=== PATIENT | female | born 1985 | race Caucasian/White ===

== ENCOUNTER 2017-05-23 21:55 | Outpatient (CLI) | payer OTHER ==
[2017-05-23] MEDS ORDERED: LACTATED RINGERS 1,000 ML IV ONE (22:55)
[2017-05-23] MEDS ORDERED: ONDANSETRON 4 MG/2 ML VIAL IVP STA (23:09)
[2017-05-23 23:31] LABS: HCT 35.7 % (34.0-46.0); HGB 12.4 gm/dL (11.4-16.0); MCH 28.1 pg (25.0-35.0); MCHC 34.6 g/dL (31.0-37.0); MCV 81.2 fL (80.0-100.0); Mean Platelet Volume 13.2; Platelet Count 196 k/uL (150-450); RDW 13.7 % (11.5-15.5); WBC 14.3 k/uL (3.8-10.6)
[2017-05-23 23:32] LABS: Appearance,Urine Cloudy (Clear); Bilirubin,Urine Negative (Negative); Blood,Urine Negative (Negative); Color,Urine Yellow; Glucose,Urine (UA) Negative (Negative); Ketones,Urine 3+ (Negative); Leukocyte Esterase,Urine Trace (Negative); Mucus,Urine Moderate /hpf; Nitrite,Urine Negative (Negative); Protein,Urine 1+ (Negative); RBC,Urine 1 /hpf (0-5); Specific Gravity,Urine 1.027 (1.001-1.035); Squamous Epithelial Cell,Urine 18 /hpf (0-4); WBC,Urine 3 /hpf (0-5)
[2017-05-23 23:34] VITALS: RESP 18
[2017-05-23] MEDS: NIFEdipine 10 MG CAP PO PRN (23:36)
[2017-05-23] MEDS: LACTATED RINGERS 1,000 ML IV SCH (23:41)
[2017-05-23 23:52] LABS: Eosinophils # (M) 0.14 k/uL (0-0.7); Lymphocytes # (M) 1.72 k/uL (1.0-4.8); Monocytes # (M) 0.29 k/uL (0-1.0); Neutrophils # (M) 12.16 k/uL (1.3-7.7); Neutrophils % (M) 85 %; Nucleated Red Blood Cells 0 /100 WBC (0-0); Total Cells Counted 100
[2017-05-23 23:53] LABS: Large Platelets Present
[2017-05-24] MEDS: NIFEdipine 10 MG CAP PO PRN ×2 (00:20)
[2017-05-24] MEDS: LACTATED RINGERS 1,000 ML IV SCH (00:41)
[2017-05-24 02:11] VITALS: BP 123/61; PULSE 96; TEMP 99.3
--- NOTE | 2017-07-01 16:38 | P.MSEPDOC ---
Presenting Problems - Arrival Data Date of Arrival on Unit: 05/23/17 Time of Arrival on Unit: 21:55 Mode of Transport: Wheelchair - Complaint OB-Reason for Admission/Chief Complaint: Acute Nausea/Vomiting Medical History - Information : 1 Para: 0 Term: 0 : 0 Abortions: Spontaneous or Elective: 0 Number of Living Children: 0 - Gestational Age Gestational Age by BIJAN (wks/days): 34 Weeks and 2 Days Review of Systems - Review of Systems Constitutional: No problems Breast: No problems ENT: No problems Cardiovascular: No problems Respiratory: No problems Gastrointestinal: Diarrhea Genitourinary: No problems Musculoskeletal: No problems Neurological: No problems Skin: No problems Vital Signs - Temperature Temperature: 99.3 F Temperature Source: Temporal Artery Scan - Pulse Right Brachial Pulse Rate: 96 Pulse Assessment Method: Automatic Cuff - Respirations Respiratory Rate: 18 Oxygen Delivery Method: Room Air - Blood Pressure Right Arm Blood Pressure: 123/61 Blood Pressure Mean: 81 Blood Pressure Source: Automatic Cuff Medical Screen Scoring (Pre) - Cervical Exam Dilation: 1-3 cm = 1 Effacement: More than 50% = 2 Membranes: Intact - Uterine Contractions Frequency: < 36 weeks = 6 Duration: > 40 seconds = 2 Intensity: N/A - Maternal Vital Signs Maternal Temperature: N/A Maternal Blood Pressure: N/A Signs of Preeclampsia: N/A Maternal Respirations: N/A - Pain Assessment Pain Location and Character: Abdomen Pain Scale Used: Numeric (1 - 10) Pain Intensity: 4 Pain Description: *Acute Pain Radiation Location: none Pain Frequency: Intermittent Pain Duration: 2 Pain Duration Units: Hours Pain Behavior: Anxious, Moving Slowly - Maternal Trauma Maternal Trauma: N/A - Assessment Baseline FHR: 150 Heart Rate - NICHD Category: Category I (Normal) = 0 NST: Reactive Position: N/A - Total Score Total Score (Pre): 11 - Level of Risk Level of Risk: High (10+) Physician Notification (Pre) - Physician Notified Physician/Practitioner Notifed:: Dr. Oliver Spoke With: Dr. Oliver - Notification Comment Comment: updated on pt condition, will recheck cervix, if no change and contractions remain to be spaced out, may discharge pt home Medical Screen Scoring (Post) - Cervical Exam Dilation: 1-3 cm = 1 Effacement: Exam Deferred Membranes: Intact - Uterine Contractions Frequency: > or = 36 weeks =2 Duration: N/A Intensity: N/A - Maternal Vital Signs Maternal Temperature: N/A Maternal Blood Pressure: N/A Signs of Preeclampsia: N/A Maternal Respirations: N/A - Pain Assessment Pain Scale Used: Numeric (1 - 10) Pain Intensity: 0 - Maternal Trauma Maternal Trauma: N/A - Assessment Heart Rate: 135 Heart Rate - NICHD Category: Category I (Normal) = 0 NST: Reactive Position: N/A Station: N/A - Total Score Total Score (Post): 3 - Post Treatment Level of Risk Post Treatment Level of Risk: Low (0-5) Physician Notification (Post) - Physician Notified Physician Notified Date: 05/24/17 Physician Notified Time: 00:10 Physician/Practitioner Notified:: Dr. Oliver Spoke With: Dr. Oliver New Order Received: No Disposition - Disposition OB Disposition: Discharge to home, Written follow up instructions reviewed Discharge Date: 05/24/17 Discharge Time: 01:25 I agree with the RN Medical Screening Exam: Yes Risk & Benefit of care provided described in d/c instruction: Yes Diagnosis: LATE VOMITING OF
== END 2017-05-24 01:25 | disposition home or self-care (01) ==
LOC: FBPOP 21:55
PROVIDERS: ATTEND Obstetrics & Gynecology
DX: O21.2 Late vomiting of pregnancy (principal); Z3A.34 34 weeks gestation of pregnancy
CPT/HCPCS: 59025; 96360; 96361; 96375; 82731; 85025; 81001; G0463; J2405; 99214

== ENCOUNTER 2017-06-17 00:50 | Inpatient (IN) | payer OTHER ==
[2017-06-17] MEDS ORDERED: OXYTOCIN 10 UNIT/ML 1 ML VIAL IM PRN (02:51)
[2017-06-17] MEDS ORDERED: AMPICILLIN 2,000 MG in SODIUM CHLORIDE 0.9% 100 ML IVPB STA (02:51)
[2017-06-17] MEDS ORDERED: TERBUTALINE 1 MG/ML VIAL SQ PRN (02:51)
[2017-06-17] MEDS ORDERED: CARBOPROST TROMETHAMINE 250 MCG/ML 1 ML AMP IM PRN (02:51)
[2017-06-17] MEDS ORDERED: METHYLERGONOVINE 0.2 MG/ML 1 ML AMP IM PRN (02:51)
[2017-06-17] MEDS ORDERED: LIDOCAINE 1% (PF) 10 MG/ML (30 ML SDV) SQ PRN (02:51)
[2017-06-17] MEDS: LACTATED RINGERS 1,000 ML IV SCH ×2 (03:06→15:08)
[2017-06-17 03:16] VITALS: BMI 30.5
[2017-06-17] MEDS ORDERED: BUTORPHANOL 1 MG/ML 1 ML VIAL IV PRN (03:19)
[2017-06-17 03:42] LABS: Basophils # (A) 0.1 k/uL (0-0.2); Basophils % (A) 0 %; Eosinophils # (A) 0.2 k/uL (0-0.7); Eosinophils % (A) 1 %; HCT 33.7 % (34.0-46.0); HGB 11.7 gm/dL (11.4-16.0); Lymphocytes # (A) 3.1 k/uL (1.0-4.8); Lymphocytes % (A) 24 %; MCH 28.3 pg (25.0-35.0); MCHC 34.9 g/dL (31.0-37.0); MCV 81.3 fL (80.0-100.0); Mean Platelet Volume 15.7; Monocytes # (A) 0.6 k/uL (0-1.0); Monocytes % (A) 4 %; Neutrophils # (A) 9.1 k/uL (1.3-7.7); Neutrophils % (A) 69 %; Platelet Count 158 k/uL (150-450); RBC 4.14 m/uL (3.80-5.40); RDW 13.6 % (11.5-15.5); WBC 13.2 k/uL (3.8-10.6)
[2017-06-17 04:38] LABS: Large Platelets Present
[2017-06-17] MEDS: AMPICILLIN 1,000 MG in SODIUM CHLORIDE 0.9% 50 ML IVPB SCH ×3 (07:07→19:29)
[2017-06-17] MEDS ORDERED: diphenhydrAMINE 50 MG CAP PO PRN (08:27)
[2017-06-17] MEDS ORDERED: diphenhydrAMINE 50 MG/ML 1 ML VIAL IVP PRN ×2 (08:27)
[2017-06-17] MEDS ORDERED: HYDROCORTISONE 2.5% RECTAL CREAM 30 GM TUBE RECTAL PRN (08:27)
[2017-06-17] MEDS ORDERED: ZOLPIDEM 5 MG TAB PO PRN (08:27)
[2017-06-17] MEDS ORDERED: SIMETHICONE 80 MG CHEWABLE PO PRN (08:27)
[2017-06-17] MEDS ORDERED: ACETAMINOPHEN TAB 325 MG TAB PO PRN (08:27)
[2017-06-17] MEDS ORDERED: LANOLIN CREAM 5 GM TUBE TOPICAL PRN (08:27)
[2017-06-17] MEDS ORDERED: WITCH HAZEL 1 EACH MED..PAD TOPICAL PRN (08:27)
[2017-06-17] MEDS ORDERED: diphenhydrAMINE 25 MG CAP PO PRN (08:27)
[2017-06-17] MEDS ORDERED: BENZOCAINE/MENTHOL SPRAY 1 GM/SPRAY AEROSOL TOPICAL PRN (08:27)
--- NOTE | 2017-06-17 08:31 | P.HPOB ---
History of Present Illness H&P Date: 06/17/17 Chief Complaint: Active labor This is a 31-year-old 4 para 03/30/2002 at 37-5/7 weeks with an estimated date of confinement of 07/03/2017. Patient presented in active labor. Was admitted to labor and delivery for expectant management. She noted good movement at this time. On blood work blood type of O+, rubella immune, hepatitis B surface antigen negative, RPR nonreactive, group beta strep positive. Review of Systems Constitutional: Reports fatigue, Denies chills, Denies fever Cardiovascular: Reports edema Respiratory: Denies cough Gastrointestinal: Denies constipation, Denies diarrhea Genitourinary: Reports Past Medical History Past Medical History: No Reported History History of Any Multi-Drug Resistant Organisms: None Reported Past Surgical History: Appendectomy Additional Past Surgical History / Comment(s): lympoma removal Past Anesthesia/Blood Transfusion Reactions: No Reported Reaction Past Psychological History: No Psychological Hx Reported Additional Psychological History / Comment(s): depression after last delivery lasting more than six weeks. not medicated Smoking Status: Never smoker Past Alcohol Use History: None Reported Past Drug Use History: None Reported - Past Family History Mother Family Medical History: Thyroid Disorder Medications and Allergies Home Medications Medication Instructions Recorded Confirmed Type No Known Home Medications [No 06/17/17 06/17/17 History Known Home Medications] Allergies Allergy/AdvReac Type Severity Reaction Status Date / Time No Known Allergies Allergy Verified 06/10/17 16:54 Exam Osteopathic Statement: *. No significant issues noted on an osteopathic structural exam other than those noted in the History and Physical/Consult. - Vital Signs Vital signs: Vital Signs Temp Pulse Resp BP Pulse Ox 06/17/17 02:51 98.2 F 94 16 139/86 99 06/17/17 01:04 98.2 F 94 16 139/86 99 Intake and Output 06/16/17 06/17/17 06/17/17 22:59 06:59 14:59 Other: # Voids 2 Weight 80.739 kg - OBG Physical Exam Abdomen: Gravid Results Result Diagrams: 06/17/17 02:55 Abnormal Lab Results - Last 24 Hours (Table) 06/17/17 Range/Units 02:55 WBC 13.2 H (3.8-10.6) k/uL Hct 33.7 L (34.0-46.0) % Neutrophils # 9.1 H (1.3-7.7) k/uL Assessment and Plan (1) Positive GBS test Current Visit: Yes Status: Acute Code(s): B95.1 - STREPTOCOCCUS, GROUP B, CAUSING DISEASES [facility] SNOMED Code(s): 5016511358411 (2) Normal labor Current Visit: No Status: Acute Code(s): O80 - ENCOUNTER FOR FULL-TERM UNCOMPLICATED DELIVERY SNOMED Code(s): 71867350 (3) Third trimester Narrative/Plan: Will admit for expectant management. Anticipate spontaneous vaginal delivery. GBS prophylaxis with ampicillin 2 g IV Current Visit: No Status: Acute Code(s): Z33.1 - STATE, INCIDENTAL SNOMED Code(s): 83006689
--- NOTE | 2017-06-17 08:33 | P.PROBDLV ---
Vaginal Delivery Note - . Vaginal Delivery Note: This is a 31-year-old 4 para [birth year]/30/2002 at 37-5/7 weeks that presented to labor and delivery in active labor. She progressed slowly through labor this morning she was 9 cm at 0 station with a bulging bag of water amniotomy was performed and clear fluid was obtained. Patient progressed to complete and had a spontaneous vaginal delivery of a viable male infant at 811, weight 6 lbs. 13 oz., Apgars 9 and 9 at one and 5 minutes respectively. Next Patient was noted to be the head was delivered without difficulty no nuchal cord was noted. The anterior shoulder was then delivered by slight downward traction followed by upward traction delivering the posterior shoulder the infant was then delivered completely and ended off to the mom. The cortex then doubly clamped and cut a three-vessel cord was noted. The placenta was then delivered spontaneously intact without difficulty. Afterwards the vaginal vault was inspected a second degree midline laceration was noted this was repaired in usual fashion with 3-0 Vicryl. Afterwards inspection revealed no further lacerations. Estimated blood loss approximate 200 mL Mother and infant tolerated delivery well and are resting comfortably
[2017-06-17] MEDS: IBUPROFEN 600 MG TAB PO PRN ×2 (09:58→16:04)
[2017-06-17] MEDS ORDERED: OXYTOCIN 20 UNITS/1000 ML NS 1,000 ML IV SCH (10:00)
[2017-06-17] MEDS: SENNOSIDES-DOCUSATE SODIUM 1 EACH TAB PO SCH (19:24)
[2017-06-18] MEDS: IBUPROFEN 600 MG TAB PO PRN (07:56)
[2017-06-18] MEDS: SENNOSIDES-DOCUSATE SODIUM 1 EACH TAB PO SCH ×2 (07:57→22:10)
--- NOTE | 2017-06-18 15:59 | P.PNOBGVD ---
Subjective - Subjective Principal diagnosis: PPD 1 Interval history: Patient is postop day 1 status post normal spontaneous vaginal delivery, she is doing well. She states her pain is well-controlled, she is tolerating a regular diet without nausea or vomiting. She is ambulating and voiding without difficulty. She denies concerns. She is pumping at this time secondary to the being in the special care nursery. Patient reports: Reports appetite normal, Reports voiding normally, Reports pain well controlled, Reports ambulating normally : doing well (He is being observed in special care nursery and requiring oxygen) Objective - Latest Vital Signs Latest vital signs: Vital Signs Temp Pulse Resp BP 06/18/17 08:00 97.5 F L 83 18 111/80 06/18/17 00:00 97.3 F L 73 16 114/64 06/17/17 19:25 98.0 F 78 16 129/85 06/17/17 16:00 98.1 F 73 16 117/73 - Exam Extremities: Present: normal Abdomen: Present: normal appearance, soft Uterus: Present: firm Assessment and Plan (1) Positive GBS test Current Visit: Yes Status: Acute Code(s): B95.1 - STREPTOCOCCUS, GROUP B, CAUSING DISEASES CL[facility]SD [facility] SNOMED Code(s): 0364502637949 (2) Normal labor Current Visit: No Status: Acute Code(s): O80 - ENCOUNTER FOR FULL-TERM UNCOMPLICATED DELIVERY SNOMED Code(s): 04851717 (3) Third trimester Current Visit: No Status: Acute Code(s): Z33.1 - STATE, INCIDENTAL SNOMED Code(s): 23219110 Plan: We'll continue routine care. Patient is without complaints today anticipate discharge home tomorrow
[2017-06-19] MEDS: SENNOSIDES-DOCUSATE SODIUM 1 EACH TAB PO SCH (08:30)
[2017-06-19] MEDS: IBUPROFEN 600 MG TAB PO PRN ×2 (08:33→16:55)
--- NOTE | 2017-06-19 11:07 | P.DS ---
Providers Date of admission: 06/17/17 02:40 Expected date of discharge: 06/19/17 Attending physician: Era Zuniga Primary care physician: Era Zuniga - Discharge Diagnosis(es) (1) Positive GBS test Current Visit: Yes Status: Acute (2) Normal labor Current Visit: No Status: Acute (3) Third trimester Current Visit: No Status: Acute (4) Status post vaginal delivery Current Visit: Yes Status: Acute Hospital Course: This is a 31-year-old 4 para [birth year]/30/2000 at 37-5/7 weeks that presented in active labor on 421. Patient progressed through labor eventually amniotomy was performed of clear fluid. She was known to be GBS positive and treated 2 times with ampicillin. She breast complete and had a normal spontaneous vaginal delivery of a viable male at 811, weight of 6 lbs. 13 oz., Apgars of 9 and 9 at one and 5 minutes respectively. Of note patient was admitted to special care nursery for respiratory distress after delivery and remained there today on day #2. Next Patient's post course has been uneventful. She states her lochia is minimal, she is pumping as the is unable to latch at this time. She is ambulating and voiding without difficulty, she is tolerating a regular diet without nausea or vomiting. She denies pain and states she is ready to go home. Plan - Discharge Summary New Discharge Prescriptions: No Action No Known Home Medications [No Known Home Medications] Discharge Medication List No Known Home Medications [No Known Home Medications] 06/17/17 [History] Follow up Appointment(s)/Referral(s): Era Zuniga DO [Primary Care Provider] - 2 Weeks Patient Instructions/Handouts: Vaginal Delivery (DC) Activity/Diet/Wound Care/Special Instructions: No intercourse or tub baths until check
[2017-06-19 12:27] VITALS: RESP 16
[2017-06-19 17:03] VITALS: BP 119/77; PULSE 88; TEMP 97.6
== END 2017-06-19 18:40 | disposition home or self-care (01) | DRG 775 ==
LOC: FBPOP 00:50 → 4FBP 02:40
PROVIDERS: ADMIT Obstetrics & Gynecology Obstetrics; ATTEND Obstetrics & Gynecology Obstetrics
PROC: 0KQM0ZZ Repair Perineum Muscle, Open Approach (ICD-10-PCS; principal; 2017-06-17)
PROC: 10E0XZZ Delivery of Products of Conception, External Approach (ICD-10-PCS; 2017-06-17)
PROC: 10907ZC Drainage of Amniotic Fluid, Therapeutic from Products of Conception, Via Natural or Artificial Opening (ICD-10-PCS; 2017-06-17)
DX: O99.824 Streptococcus B carrier state complicating childbirth (principal); Z37.0 Single live birth; O70.1 Second degree perineal laceration during delivery; Z3A.37 37 weeks gestation of pregnancy
CPT/HCPCS: 59025; 84112; 85025; 88307; 99213

== ENCOUNTER 2017-06-24 16:55 | Emergency (ER) | payer OTHER ==
[2017-06-24] MEDS ORDERED: ACETAMINOPHEN TAB 325 MG TAB PO STA (17:15)
--- NOTE | 2017-06-24 17:22 | ED ---
Fever HPI - General Chief Complaint: Fever Stated Complaint: Fever post delivery Time Seen by Provider: 06/24/17 17:05 Source: patient, RN notes reviewed Mode of arrival: ambulatory Limitations: no limitations - History of Present Illness Initial Comments: This is a 31-year-old female, currently 1 week , who presents to the emergency department with chief complaint of fever. Patient states that she had a vaginal delivery 1 week ago. She states that there were no delivery complications. She states that at 34 weeks gestation she developed influenza and went into labor. They were able to stop progression of labor and patient delivered at 37 weeks and 5 days. She states that last night she began to feel intermittent hot and cold spells. She woke up this morning with body aches and developed a fever of 101. She took ibuprofen earlier at approximately 1 PM. She also admits to lower abdominal cramping and has been continuing to have vaginal bleeding that seems heavy compared to her previous pregnancies. She states that she is changing her pad a few times per day. She denies cough, difficulty breathing, chest pain, nausea or vomiting, diarrhea or constipation, hematuria, headache or dizziness. She does state that she has some dysuria. Patient is currently breast-feeding. - Related Data Previous Rx's Medication Instructions Recorded Cephalexin [Keflex] 500 mg PO Q12HR #20 cap 06/24/17 Clindamycin [Cleocin] 450 mg PO TID #90 cap 06/24/17 Allergies Allergy/AdvReac Type Severity Reaction Status Date / Time No Known Allergies Allergy Verified 06/24/17 17:02 Review of Systems ROS Statement: Those systems with pertinent positive or pertinent negative responses have been documented in the HPI. ROS Other: All systems not noted in ROS Statement are negative. Past Medical History Past Medical History: No Reported History History of Any Multi-Drug Resistant Organisms: None Reported Past Surgical History: Appendectomy Additional Past Surgical History / Comment(s): lympoma removal Past Anesthesia/Blood Transfusion Reactions: No Reported Reaction Past Psychological History: No Psychological Hx Reported Smoking Status: Never smoker Past Alcohol Use History: None Reported Past Drug Use History: None Reported - Past Family History Mother Family Medical History: Thyroid Disorder General Exam - General Exam Comments Initial Comments: General: Awake and alert, well-developed; in no apparent distress. Sitting comfortably on ED stretcher breast-feeding. is at bedside. HEENT: Head atraumatic, normocephalic. Pupils are equal, round and reactive to light. Extraocular movements intact. Oropharynx moist without erythema or exudate. Neck: Supple. Normal ROM. Cardiovascular: Regular rate and rhythm. No murmurs, rubs or gallops. Chest symmetrical. Respiratory: Lungs clear to auscultation bilaterally. No wheezes, rales or rhonchi. Normal respiratory effort with no use of accessory muscles. Abdomen: Soft, non-distended. Mild tenderness on palpation of left lower quadrant. No rigidity, rebound or guarding. Normal bowel sounds in all 4 quadrants. Musculoskeletal: Normal ROM, no tenderness bilateral upper and lower extremities. Ambulating normally. Skin: [place], warm and dry without rashes or lesions. Neurological: Alert and oriented x3. CN II-XII grossly intact. Speech is fluent and answers are appropriate. No focal neuro deficits. Psychiatric: Normal mood and affect. No overt signs of depression or anxiety noted. Limitations: no limitations External exam: Present: normal external exam. Absent: erythema, swelling, lesions Speculum exam: Present: vaginal bleeding. Absent: erythema, vaginal discharge, cervical discharge Course Vital Signs 06/24/17 06/24/17 06/24/17 16:58 19:03 20:39 Temperature 101 F H 98.2 F 98.3 F Pulse Rate 106 H 90 85 Respiratory 18 16 16 Rate Blood Pressure 123/78 121/68 108/62 O2 Sat by Pulse 97 95 100 Oximetry Medical Decision Making - Medical Decision Making This is a 31-year-old female who presented to the emergency department for evaluation of fever. Patient is one week . Patient complained of fever, body aches and dysuria. On presentation to the emergency department she did have a fever of 101. CBC revealed a white count of 12.4 with left shift at 9.6. Lactic acid is negative. Influenza was negative. UA revealed large blood and > 102 red blood cells, however patient does continue to have vaginal bleeding. UA also revealed large leukocyte esterase and high white blood cell count. Transvaginal ultrasound was obtained and revealed thickening of the endometrium as well as hemorrhagic debris. Serum beta-hCG is at 20. Pelvic exam was performed and vaginal tissue appears normal. There does continue to be some vaginal bleeding however no signs of infection. Patient given a dose of Rocephin while in the emergency department. She will be discharged home with Keflex and clindamycin to cover both UTI and possible endometritis. Recommended following up with her [employer] on Monday morning. Patient's vital signs are stable and she is in no acute distress. She states that she is feeling well at this time. She will be discharged home. Patient is in agreement with plan and voices understanding. All questions were answered. This case was discussed with attending physician, Dr. Carrillo. - Lab Data Result diagrams: 06/24/17 17:28 06/24/17 17: Lab Results 06/24/17 06/24/17 06/24/17 Range/Units 17:18 17: 17: WBC 12.4 H (3.8-10.6) k/uL RBC 4.16 (3.80-5.40) m/uL Hgb 11.6 (11.4-16.0) gm/dL Hct 34.2 (34.0-46.0) % MCV 82.3 (80.0-100.0) fL MCH 27.9 (25.0-35.0) pg MCHC 33.9 (31.0-37.0) g/dL RDW 13.8 (11.5-15.5) % Plt Count 231 (150-450) k/uL Neutrophils % 77 % Lymphocytes % 15 % Monocytes % 4 % Eosinophils % 2 % Basophils % 0 % Neutrophils # 9.6 H (1.3-7.7) k/uL Lymphocytes # 1.9 (1.0-4.8) k/uL Monocytes # 0.5 (0-1.0) k/uL Eosinophils # 0.2 (0-0.7) k/uL Basophils # 0.0 (0-0.2) k/uL Manual Slide Review Performed Large Platelets Present Sodium 141 (137-145) mmol/L Potassium 3.9 (3.5-5.1) mmol/L Chloride 109 H (98-107) mmol/L Carbon Dioxide 19 L (22-30) mmol/L Anion Gap 13 mmol/L BUN 14 (7-17) mg/dL Creatinine 0.80 (0.52-1.04) mg/dL Est GFR (CKD-EPI)AfAm >90 (>60 ml/min/1.73 sqM) Est GFR (CKD-EPI)NonAf >90 (>60 ml/min/1.73 sqM) Glucose 99 (74-99) mg/dL Plasma Lactic Acid Jonathan (0.7-2.0) mmol/L Calcium 8.4 (8.4-10.2) mg/dL Total Bilirubin 0.4 (0.2-1.3) mg/dL AST 15 (14-36) U/L ALT 27 (9-52) U/L Alkaline Phosphatase 103 (38-126) U/L Total Protein 6.7 (6.3-8.2) g/dL Albumin 3.8 (3.5-5.0) g/dL HCG, Quant mIU/mL Urine Color Yellow Urine Appearance Cloudy H (Clear) Urine pH 6.0 (5.0-8.0) Ur Specific [place] 1.032 (1.001-1.035) Urine Protein 1+ H (Negative) Urine Glucose (UA) Negative (Negative) Urine Ketones Negative (Negative) Urine Blood Large H (Negative) Urine Nitrite Negative (Negative) Urine Bilirubin Negative (Negative) Urine Urobilinogen 2.0 (<2.0) mg/dL Ur Leukocyte Esterase Large H (Negative) Urine RBC >182 H (0-5) /hpf Urine WBC 91 H (0-5) /hpf Ur Squamous Epith Cells 1 (0-4) /hpf Urine Mucus Moderate H (None) /hpf Influenza Type A RNA (Not Detectd) Influenza Type B (PCR) (Not Detectd) 06/24/17 06/24/17 06/24/17 Range/Units 17:28 17:28 17:28 WBC (3.8-10.6) k/uL RBC (3.80-5.40) m/uL Hgb (11.4-16.0) gm/dL Hct (34.0-46.0) % MCV (80.0-100.0) fL MCH (25.0-35.0) pg MCHC (31.0-37.0) g/dL RDW (11.5-15.5) % Plt Count (150-450) k/uL Neutrophils % % Lymphocytes % % Monocytes % % Eosinophils % % Basophils % % Neutrophils # (1.3-7.7) k/uL Lymphocytes # (1.0-4.8) k/uL Monocytes # (0-1.0) k/uL Eosinophils # (0-0.7) k/uL Basophils # (0-0.2) k/uL Manual Slide Review Large Platelets Sodium (137-145) mmol/L Potassium (3.5-5.1) mmol/L Chloride (98-107) mmol/L Carbon Dioxide (22-30) mmol/L Anion Gap mmol/L BUN (7-17) mg/dL Creatinine (0.52-1.04) mg/dL Est GFR (CKD-EPI)AfAm (>60 ml/min/1.73 sqM) Est GFR (CKD-EPI)NonAf (>60 ml/min/1.73 sqM) Glucose (74-99) mg/dL Plasma Lactic Acid Jonathan <0.5 L (0.7-2.0) mmol/L Calcium (8.4-10.2) mg/dL Total Bilirubin (0.2-1.3) mg/dL AST (14-36) U/L ALT (9-52) U/L Alkaline Phosphatase (38-126) U/L Total Protein (6.3-8.2) g/dL Albumin (3.5-5.0) g/dL HCG, Quant 20.2 mIU/mL Urine Color Urine Appearance (Clear) Urine pH (5.0-8.0) Ur Specific [place] (1.001-1.035) Urine Protein (Negative) Urine Glucose (UA) (Negative) Urine Ketones (Negative) Urine Blood (Negative) Urine Nitrite (Negative) Urine Bilirubin (Negative) Urine Urobilinogen (<2.0) mg/dL Ur Leukocyte Esterase (Negative) Urine RBC (0-5) /hpf Urine WBC (0-5) /hpf Ur Squamous Epith Cells (0-4) /hpf Urine Mucus (None) /hpf Influenza Type A RNA Not Detected (Not Detectd) Influenza Type B (PCR) Not Detected (Not Detectd) - Radiology Data Radiology results: report reviewed Ultrasound pelvic complete with Doppler impression: 1. Bulky uterus. 2. Mildly thickened and heterogenous endometrium measuring 1.5 cm. No appreciable vascularity. Some residual hemorrhagic debris is suggested. Correlate with beta hCG to exclude retained products of conception though this is less likely due to the lack of vascularity. 3. Normal appearance of the ovaries without evidence for ovarian torsion. Disposition Clinical Impression: Urinary tract infection Narrative: Urinary tract infection, possible endometritis. Disposition: HOME SELF-CARE Condition: Good Instructions: Urinary Tract Infection in Women (ED), Endometritis (ED) Additional Instructions: Please follow up with your [employer] within the next 1-2 days. Please take medications as prescribed. Please follow up with primary care provider within 1- 2 days. Return to emergency department if symptoms should worsen or any concerns arise. Prescriptions: Cephalexin [Keflex] 500 mg PO Q12HR #20 cap Clindamycin [Cleocin] 450 mg PO TID #90 cap Is patient prescribed a controlled substance at d/c from ED?: No Referrals: None,Stated [Primary Care Provider] - 1-2 days Time of Disposition: 22:13
[2017-06-24 17:27] LABS: Appearance,Urine Cloudy (Clear); Bilirubin,Urine Negative (Negative); Blood,Urine Large (Negative); Color,Urine Yellow; Glucose,Urine (UA) Negative (Negative); Ketones,Urine Negative (Negative); Leukocyte Esterase,Urine Large (Negative); Mucus,Urine Moderate /hpf; Nitrite,Urine Negative (Negative); Protein,Urine 1+ (Negative); RBC,Urine >182 /hpf (0-5); Specific Gravity,Urine 1.032 (1.001-1.035); Squamous Epithelial Cell,Urine 1 /hpf (0-4); WBC,Urine 91 /hpf (0-5)
[2017-06-24 17:39] LABS: Basophils % (A) 0 %; Eosinophils # (A) 0.2 k/uL (0-0.7); Eosinophils % (A) 2 %; HCT 34.2 % (34.0-46.0); HGB 11.6 gm/dL (11.4-16.0); Lymphocytes # (A) 1.9 k/uL (1.0-4.8); Lymphocytes % (A) 15 %; MCH 27.9 pg (25.0-35.0); MCHC 33.9 g/dL (31.0-37.0); MCV 82.3 fL (80.0-100.0); Mean Platelet Volume 10.7; Monocytes # (A) 0.5 k/uL (0-1.0); Monocytes % (A) 4 %; Neutrophils # (A) 9.6 k/uL (1.3-7.7); Neutrophils % (A) 77 %; Platelet Count 231 k/uL (150-450); RBC 4.16 m/uL (3.80-5.40); RDW 13.8 % (11.5-15.5); WBC 12.4 k/uL (3.8-10.6)
[2017-06-24 17:45] LABS: ALT 27 U/L (9-52); AST 15 U/L (14-36); Albumin 3.8 g/dL (3.5-5.0); Alkaline Phosphatase 103 U/L (38-126); Anion Gap 13 mmol/L; Blood Urea Nitrogen 14 mg/dL (7-17); Calcium 8.4 mg/dL (8.4-10.2); Carbon Dioxide 19 mmol/L (22-30); Chloride 109 mmol/L (98-107); Glucose 99 mg/dL (74-99); Potassium 3.9 mmol/L (3.5-5.1); Sodium 141 mmol/L (137-145); Total Bilirubin 0.4 mg/dL (0.2-1.3); Total Protein 6.7 g/dL (6.3-8.2)
[2017-06-24 17:52] LABS: Large Platelets Present
--- NOTE | 2017-06-24 20:37 | US ---
EXAMINATION TYPE: US pelvic complete plus Dopplers DATE OF EXAM: 06/24/2017 COMPARISON: NONE CLINICAL HISTORY: 31-year-old female fever. Fever, 1 week vaginal delivery, gra mirian 4, para 4 TECHNIQUE: Transabdominal sonographic images of the pelvis were acquired. No transvaginal exam due t o patient 1 week post . Color Doppler and spectral waveform analysis of the ovarian arteries an d veins. Date of LMP: Unknown Findings: 1. Uterus: anteverted measuring 12.8 x 8.8 x 9.9 cm, bulky, enlarged 2. Endometrium: Mildly thickened at 1.5 cm and heterogeneous without hyperemia. 3. Right Ovary: 3.0 x 1.6 x 1.5 cm for a volume of 3.7 mL. 4. Left Ovary: 4.1 x 2.4 x 2.7 cm for a volume of 14.1 mL. Spectral, color and waveform doppler imaging shows good arterial and venous flow within the ovaries ; there is no evidence for ovarian torsion. 5. Bilateral Adnexa: wnl 6. Posterior cul-de-sac: wnl IMPRESSION: 1. Bulky uterus. 2. Mildly thickened and heterogeneous endometrium measuring 1.5 cm. No appreciable vascularity. Some residual hemorrhagic debris is suggested. Correlate with beta-hCG to exclude retained products of con ception though this is less likely due to the lack of vascularity 3. Normal appearance to the ovaries without evidence for ovarian torsion.
[2017-06-24] MEDS ORDERED: cefTRIAXone IN SWFI 1,000 MG/10 ML SYRINGE IVP STA (22:01)
[2017-06-24 22:38] VITALS: BP 102/67; PULSE 79; RESP 18; TEMP 98.1
== END 2017-06-24 22:37 | disposition home or self-care (01) ==
LOC: EC 16:55
DX: O86.20 Urinary tract infection following delivery, unspecified (principal); O72.1 Other immediate postpartum hemorrhage; O99.89 Other specified diseases and conditions complicating pregnancy, childbirth and the puerperium; R93.8 Abnormal findings on diagnostic imaging of other specified body structures; Z90.49 Acquired absence of other specified parts of digestive tract
CPT/HCPCS: 99284; 96374; 36415; 80053; 83605; 85025; 81001; 84702; 87040; 87502; 93975; 76856; J0696

== ENCOUNTER → 2018-12-13 | Outpatient (CLI) | payer OTHER ==
--- NOTE | 2018-12-13 11:15 | US ---
EXAMINATION TYPE: Transabdominal DATE OF EXAM: 12/13/2018 10:58 AM COMPARISON: NONE CLINICAL HISTORY: O46.91 SPOTTING, BLEEDING. Bleeding x 1 day, 6, para 4, miscarriage 1 EXAM PERFORMED: Transabdominal (TA) EXAM MEASUREMENTS: GESTATIONAL AGE / DATING Physician Established: Not established yet Dates by LMP: (6 weeks/1 days) EDC: 08/07/2019 Dates by First Scan: This is 1st scan Dates by Current Scan for: No IUP seen at this time MATERNAL ANATOMY Uterus: 8.5 x 4.9 x 6.0cm, anteverted Right Ovary: 3.4 x 2.3 x 2.1cm Left Ovary: 3.8 x 3.0 x 3.0cm Post CDS / Adnexa: wnl Presence of free fluid: no Presence of corpus luteal cyst: not seen Presence of subchorionic bleed: no GESTATION / SURVEY IUP: No IUP seen at this time Date of LMP: 10/31/2018 Beta HcG (if available): Not available at time of exam. IMPRESSION: No current sonographic evidence of intrauterine . No intrauterine fluid collecti on. Correlate with beta hCG. Current considerations are for early intrauterine , ectopic pre gnancy or spontaneous . Short-term follow-up pelvic ultrasound in 7-10 days is recommended as well as short-term serial serum beta-hCG's.
== END | disposition home or self-care (01) ==
LOC: RADUSWWP 10:43
PROVIDERS: ATTEND Obstetrics & Gynecology Obstetrics
DX: O20.0 Threatened abortion (principal); Z3A.00 Weeks of gestation of pregnancy not specified
CPT/HCPCS: 36415; 76801; 84702

== ENCOUNTER → 2018-12-15 | Outpatient (CLI) | payer OTHER | END | disposition home or self-care (01) | LOC: LABWHC1 10:30 | PROVIDERS: ATTEND Obstetrics & Gynecology Obstetrics | DX: O20.0 Threatened abortion (principal) | CPT/HCPCS: 36415; 84144; 84702 ==

== ENCOUNTER → 2019-02-05 | Outpatient (CLI) | payer OTHER ==
--- NOTE | 2019-02-05 15:09 | US ---
EXAMINATION TYPE: Transabdominal DATE OF EXAM: 02/05/2019 2:51 PM COMPARISON: NONE CLINICAL HISTORY: R68.89 ABN CLINICAL FINDINGS. hx miscarriages EXAM PERFORMED: Transabdominal (TA) EXAM MEASUREMENTS: GESTATIONAL AGE / DATING Dates by LMP: ( 7 weeks/6 days) EDC: 09/18/2019 Dates by Current Scan for: ( 6 weeks/5 days) EDC: 09/26/2019 MATERNAL ANATOMY Uterus: 10.5 x 6.8 x 5.5 cm Right Ovary: 3.3 x 1.8 x 2.1 cm Left Ovary: 3.2 x 2.3 x 2.3 cm Post CDS / Adnexa: no free fluid Presence of free fluid: no Presence of corpus luteal cyst: no Presence of subchorionic bleed: no GESTATION / SURVEY CRL: 0.7 cm (6 weeks/4 days) MSD: 2.1 cm (6 weeks/6 days) Yolk Sac (normal less than 6mm): 4.1 mm Heart Rate: 122 bpm Rhythm: Normal IUP: Viable IUP Date of LMP: 12/12/2018, Beta HcG (if available): Not available at this time Single viable IUP measuring 6 weeks 5 days IMPRESSION: Single viable IUP measuring 6 weeks 5 days with a heart rate of 122 bpm and an EDC of 09/26/2019.
== END | disposition home or self-care (01) ==
LOC: RADUSWWP 14:18
PROVIDERS: ATTEND Obstetrics & Gynecology Obstetrics
DX: O36.5910 Maternal care for other known or suspected poor fetal growth, first trimester, not applicable or unspecified (principal); R68.89 Other general symptoms and signs; Z3A.01 Less than 8 weeks gestation of pregnancy
CPT/HCPCS: 76801

== ENCOUNTER 2019-02-24 16:07 | Emergency (ER) | payer OTHER ==
[2019-02-24 16:45] VITALS: TEMP 98.7
[2019-02-24 17:30] LABS: Basophils % (A) 0 %; Eosinophils # (A) 0.4 k/uL (0-0.7); Eosinophils % (A) 4 %; HCT 36.7 % (34.0-46.0); HGB 12.8 gm/dL (11.4-16.0); Lymphocytes % (A) 26 %; MCHC 34.8 g/dL (31.0-37.0); MCV 83.2 fL (80.0-100.0); Mean Platelet Volume 11.4; Monocytes # (A) 0.4 k/uL (0-1.0); Monocytes % (A) 4 %; Neutrophils # (A) 7.5 k/uL (1.3-7.7); Neutrophils % (A) 65 %; RBC 4.41 m/uL (3.80-5.40); RDW 12.2 % (11.5-15.5); WBC 11.5 k/uL (3.8-10.6)
[2019-02-24 17:39] LABS: African American GFR (CKD) >90 (>60 ml/min/1.73 sqM); Anion Gap 12 mmol/L; Blood Urea Nitrogen 11 mg/dL (7-17); Calcium 9.6 mg/dL (8.4-10.2); Carbon Dioxide 23 mmol/L (22-30); Chloride 103 mmol/L (98-107); Glucose 94 mg/dL (74-99); Non-African American GFR(CKD) >90 (>60 ml/min/1.73 sqM); Potassium 3.8 mmol/L (3.5-5.1); Sodium 138 mmol/L (137-145)
--- NOTE | 2019-02-24 18:04 | US ---
EXAMINATION TYPE: Transabdominal DATE OF EXAM: 02/24/2019 5:51 PM COMPARISON: US 2018 CLINICAL HISTORY: pain, spotting. Spotting and cramping EXAM PERFORMED: Transabdominal (TA) EXAM MEASUREMENTS: GESTATIONAL AGE / DATING Physician Established: (9 weeks/4 days) EDC: 09/25/2019 Dates by LMP: Unknown Dates by First Scan: No IUP seen at 1st scan Dates by Current Scan for: (9 weeks/0 days) EDC: 09/29/2019 MATERNAL ANATOMY Uterus: 10.5 x 5.8 x 7.6cm Right Ovary: 4.0 x 2.8 x 3.7cm Left Ovary: 3.3 x 2.0 x 2.6cm Post CDS / Adnexa: wnl Presence of free fluid: no Presence of corpus luteal cyst: right ovary: 2.1 x 1.8 x 1.9cm hypoechoic area Presence of subchorionic bleed: no GESTATION / SURVEY CRL: 2.2cm (9 weeks/0 days) Yolk Sac (normal less than 6mm): 5.0mm Heart Rate: 168 bpm Rhythm: Normal IUP: Viable IUP Date of LMP: Unknown Beta HcG (if available): Not available at time of exam Viable single IUP measuring 9 weeks 0 days with a heart rate of 168bpm and an estimated delivery date of 09/29/2019. IMPRESSION: There is satisfactory growth compared to 02/05/2019 exam.
[2019-02-24 18:11] VITALS: RESP 20
[2019-02-24 18:29] LABS: Platelet Count 252 k/uL (150-450)
[2019-02-24 18:32] LABS: Appearance,Urine Clear (Clear); Bilirubin,Urine Negative (Negative); Blood,Urine Negative (Negative); Color,Urine Light Yellow; Glucose,Urine (UA) Negative (Negative); Ketones,Urine Negative (Negative); Leukocyte Esterase,Urine Moderate (Negative); Mucus,Urine Rare /hpf; Nitrite,Urine Negative (Negative); PH, Urine 7.5 (5.0-8.0); Protein,Urine Negative (Negative); RBC,Urine <1 /hpf (0-5); Squamous Epithelial Cell,Urine 5 /hpf (0-4); Urobilinogen,Urine <2.0 mg/dL (<2.0); WBC,Urine 1 /hpf (0-5)
--- NOTE | 2019-02-24 18:49 | ED ---
Female Urogenital HPI - General Chief complaint: Vaginal Bleeding Stated complaint: 9 1/2 wks preg/spotting & cramping Time Seen by Provider: 02/24/19 16:49 Source: patient Mode of arrival: ambulatory Limitations: no limitations - History of Present Illness Initial comments: Patient is a 33-year-old female presenting to the emergency Department with com plaints of vaginal spotting as well as abdominal cramping that started yesterday evening. Patient states she is approximately 9.5 weeks . Patient is . Patient's OB is Dr. Zuniga. Patient has had 2 recent miscarriages in the last 6 months. She is concerned that she might be having another one. Patient does admit that the spotting is minimal at this time. Patient denies recent fev er, chills, cough, shortness of breath. She has no other complaints at this time. Upon arrival to the ER, her vital signs are stable. - Related Data Previous Rx's Medication Instructions Recorded Cephalexin [Keflex] 500 mg PO Q12HR #20 cap 06/24/17 Clindamycin [Cleocin] 450 mg PO TID #90 cap 06/24/17 Allergies Allergy/AdvReac Type Severity Reaction Status Date / Time No Known Allergies Allergy Verified 02/24/19 16:45 Review of Systems ROS Statement: Those systems with pertinent positive or pertinent negative responses have been documented in the HPI. ROS Other: All systems not noted in ROS Statement are negative. Past Medical History Past Medical History: No Reported History History of Any Multi-Drug Resistant Organisms: None Reported Past Surgical History: Appendectomy Additional Past Surgical History / Comment(s): lympoma removal Past Anesthesia/Blood Transfusion Reactions: No Reported Reaction Past Psychological History: No Psychological Hx Reported Smoking Status: Never smoker Past Alcohol Use History: None Reported Past Drug Use History: None Reported - Past Family History Mother Family Medical History: Thyroid Disorder General Exam - General Exam Comments Initial Comments: GENERAL: Well-appearing, well-nourished and in no acute distress. HEAD: Atraumatic, normocephalic. EYES: Pupils equal round and reactive to light, extraocular movements intact, sclera anicteric, conjunctiva are normal. ENT: Nares patent, oropharynx clear without exudates. Moist mucous membranes. NECK: Normal range of motion, supple without lymphadenopathy or JVD. LUNGS: Breath sounds clear to auscultation bilaterally and equal. No wheezes rales or rhonchi. HEART: Regular rate and rhythm without murmurs, rubs or gallops. ABDOMEN: Soft, nontender, normoactive bowel sounds. No guarding, no rebound. No masses appreciated. : Deferred, declined EXTREMITIES: Normal range of motion, no pitting or edema. No clubbing or cyanosis. NEUROLOGICAL: Normal speech, normal gait. PSYCH: Normal mood, normal affect. SKIN: Warm, Dry, normal turgor, no rashes or lesions noted. Limitations: no limitations Course Vital Signs 02/24/19 02/24/19 02/24/19 16:42 16:44 17:44 Temperature 98.7 F Pulse Rate 84 84 83 Respiratory 16 20 20 Rate Blood Pressure 130/85 130/80 108/97 O2 Sat by Pulse 99 98 98 Oximetry 02/24/19 02/24/19 18:00 19:00 Temperature Pulse Rate 75 78 Respiratory 20 20 Rate Blood Pressure 115/85 109/85 O2 Sat by Pulse 98 98 Oximetry Medical Decision Making - Medical Decision Making Patient is a 33-year-old female presents with vaginal spotting and cramping since yesterday. Patient is currently 9.5 weeks . . History of 2 miscarriages the last 6 months. Vital signs are stable. Patient has no pain in the abdomen upon palpation.Lab work shows no acute abnormalities. HCG Quant is over 100,000. UA is normal, no signs of infection. Ultrasound today shows a viable IUP measuring 9 weeks with a heart rate of 168. No abnormalities seen today. I recommended a vaginal exam however patient declined at this time. These findings were discussed with the patient, is progressing as normal at this time. Patient is stable for discharge at this time. She'll follow up with her [employer] in 2 weeks. Return parameters were discussed with the patient she verbalized understanding. Case discussed with Dr. Ambriz. - Lab Data Result diagrams: 02/24/19 16:55 02/24/19 16:55 Lab Results 02/24/19 02/24/19 02/24/19 Range/Units 16:55 16:55 16:55 WBC 11.5 H (3.8-10.6) k/uL RBC 4.41 (3.80-5.40) m/uL Hgb 12.8 (11.4-16.0) gm/dL Hct 36.7 (34.0-46.0) % MCV 83.2 (80.0-100.0) fL MCH 29.0 (25.0-35.0) pg MCHC 34.8 (31.0-37.0) g/dL RDW 12.2 (11.5-15.5) % Plt Count 252 (150-450) k/uL Neutrophils % 65 % Lymphocytes % 26 % Monocytes % 4 % Eosinophils % 4 % Basophils % 0 % Neutrophils # 7.5 (1.3-7.7) k/uL Lymphocytes # 3.0 (1.0-4.8) k/uL Monocytes # 0.4 (0-1.0) k/uL Eosinophils # 0.4 (0-0.7) k/uL Basophils # 0.0 (0-0.2) k/uL Sodium 138 (137-145) mmol/L Potassium 3.8 (3.5-5.1) mmol/L Chloride 103 (98-107) mmol/L Carbon Dioxide 23 (22-30) mmol/L Anion Gap 12 mmol/L BUN 11 (7-17) mg/dL Creatinine 0.74 (0.52-1.04) mg/dL Est GFR (CKD-EPI)AfAm >90 (>60 ml/min/1.73 sqM) Est GFR (CKD-EPI)NonAf >90 (>60 ml/min/1.73 sqM) Glucose 94 (74-99) mg/dL Calcium 9.6 (8.4-10.2) mg/dL HCG, Quant 298310.0 mIU/mL Urine Color Urine Appearance (Clear) Urine pH (5.0-8.0) Ur Specific [place] (1.001-1.035) Urine Protein (Negative) Urine Glucose (UA) (Negative) Urine Ketones (Negative) Urine Blood (Negative) Urine Nitrite (Negative) Urine Bilirubin (Negative) Urine Urobilinogen (<2.0) mg/dL Ur Leukocyte Esterase (Negative) Urine RBC (0-5) /hpf Urine WBC (0-5) /hpf Ur Squamous Epith Cells (0-4) /hpf Urine Mucus (None) /hpf Blood Type O Positive Blood Type Recheck O Pos Bld Type Recheck Status No 02/24/19 Range/Units 18:10 WBC (3.8-10.6) k/uL RBC (3.80-5.40) m/uL Hgb (11.4-16.0) gm/dL Hct (34.0-46.0) % MCV (80.0-100.0) fL MCH (25.0-35.0) pg MCHC (31.0-37.0) g/dL RDW (11.5-15.5) % Plt Count (150-450) k/uL Neutrophils % % Lymphocytes % % Monocytes % % Eosinophils % % Basophils % % Neutrophils # (1.3-7.7) k/uL Lymphocytes # (1.0-4.8) k/uL Monocytes # (0-1.0) k/uL Eosinophils # (0-0.7) k/uL Basophils # (0-0.2) k/uL Sodium (137-145) mmol/L Potassium (3.5-5.1) mmol/L Chloride (98-107) mmol/L Carbon Dioxide (22-30) mmol/L Anion Gap mmol/L BUN (7-17) mg/dL Creatinine (0.52-1.04) mg/dL Est GFR (CKD-EPI)AfAm (>60 ml/min/1.73 sqM) Est GFR (CKD-EPI)NonAf (>60 ml/min/1.73 sqM) Glucose (74-99) mg/dL Calcium (8.4-10.2) mg/dL HCG, Quant mIU/mL Urine Color Light Yellow Urine Appearance Clear (Clear) Urine pH 7.5 (5.0-8.0) Ur Specific [place] 1.010 (1.001-1.035) Urine Protein Negative (Negative) Urine Glucose (UA) Negative (Negative) Urine Ketones Negative (Negative) Urine Blood Negative (Negative) Urine Nitrite Negative (Negative) Urine Bilirubin Negative (Negative) Urine Urobilinogen <2.0 (<2.0) mg/dL Ur Leukocyte Esterase Moderate H (Negative) Urine RBC <1 (0-5) /hpf Urine WBC 1 (0-5) /hpf Ur Squamous Epith Cells 5 H (0-4) /hpf Urine Mucus Rare H (None) /hpf Blood Type Blood Type Recheck Bld Type Recheck Status Disposition Clinical Impression: Vaginal spotting, Abdominal cramping Disposition: HOME SELF-CARE Condition: Stable Instructions (If sedation given, give patient instructions): Non-Threatening First Trimester Vaginal Bleed (ED) Additional Instructions: Please return to the Emergency Department if symptoms worsen or any other concerns. Follow-up with [employer] as discussed. Is patient prescribed a controlled substance at d/c from ED?: No Referrals: Rachel Peterson DO [Primary Care Provider] - 1-2 days
[2019-02-24 19:21] VITALS: BP 109/85; PULSE 78
== END 2019-02-24 19:25 | disposition home or self-care (01) ==
LOC: EC 16:07
DX: O26.851 Spotting complicating pregnancy, first trimester (principal); O99.89 Other specified diseases and conditions complicating pregnancy, childbirth and the puerperium; R10.9 Unspecified abdominal pain; Z87.59 Personal history of other complications of pregnancy, childbirth and the puerperium; Z90.49 Acquired absence of other specified parts of digestive tract; Z3A.09 9 weeks gestation of pregnancy
CPT/HCPCS: 36415; 76801; 80048; 81001; 84702; 85025; 86900; 86901; 99284

== ENCOUNTER 2019-03-31 12:10 | Emergency (ER) | payer OTHER ==
[2019-03-31 13:17] LABS: Appearance,Urine Cloudy (Clear); Bacteria,Urine Rare /hpf; Bilirubin,Urine Negative (Negative); Blood,Urine Negative (Negative); Color,Urine Yellow; Glucose,Urine (UA) Negative (Negative); Hyaline Casts,Urine 3 /lpf (0-2); Ketones,Urine Negative (Negative); Leukocyte Esterase,Urine Trace (Negative); Mucus,Urine Rare /hpf; Nitrite,Urine Negative (Negative); PH, Urine 7.5 (5.0-8.0); Protein,Urine Negative (Negative); RBC,Urine 1 /hpf (0-5); Squamous Epithelial Cell,Urine 10 /hpf (0-4); Urobilinogen,Urine <2.0 mg/dL (<2.0); WBC,Urine 5 /hpf (0-5)
--- NOTE | 2019-03-31 14:05 | ED ---
Anxiety HPI - General Chief Complaint: Anxiety Stated Complaint: 14 wks /SOB Time Seen by Provider: 03/31/19 12:54 Source: patient Mode of arrival: ambulatory - History of Present Illness Initial Comments: Patient is a 33-year-old female, , 14 week presenting to emergency Department with a chief complaint of anxiety. She does report a history of anxiety. States that she has been dealing with anxiety after she hadn't to recent miscarriages. Patient states she talked to her OB who informed her that she might have PTSD from the miscarriages. Patient reports she is waking up over the last 2 nights and pacing back and forth from the particular reason. Patient reports this feels like her previous panic attack even before she was . She states her nausea is at baseline during her . Denies any vomiting diarrhea constipation. Denies any vaginal bleeding or discharge. Denies any abdominal pain or cramping. Denies any shortness of breath or chest pain. States she was able to calm down after she came to the ED. - Related Data Home Medications: Previous Rx's Medication Instructions Recorded Cephalexin [Keflex] 500 mg PO Q12HR #20 cap 06/24/17 Clindamycin [Cleocin] 450 mg PO TID #90 cap 06/24/17 Allergies/Adverse Reactions: Allergies Allergy/AdvReac Type Severity Reaction Status Date / Time No Known Allergies Allergy Verified 03/31/19 12:41 Review of Systems ROS Statement: Those systems with pertinent positive or pertinent negative responses have been documented in the HPI. ROS Other: All systems not noted in ROS Statement are negative. Past Medical History Past Medical History: No Reported History History of Any Multi-Drug Resistant Organisms: None Reported Past Surgical History: Appendectomy Additional Past Surgical History / Comment(s): lympoma removal Past Anesthesia/Blood Transfusion Reactions: No Reported Reaction Past Psychological History: No Psychological Hx Reported Smoking Status: Never smoker Past Alcohol Use History: None Reported Past Drug Use History: None Reported - Past Family History Mother Family Medical History: Thyroid Disorder General Exam Limitations: no limitations General appearance: alert, in no apparent distress Head exam: Present: atraumatic, normocephalic, normal inspection Eye exam: Present: normal appearance Pupils: Present: normal accommodation ENT exam: Present: normal exam, normal oropharynx, mucous membranes moist Neck exam: Present: normal inspection, full ROM Respiratory exam: Present: normal lung sounds bilaterally Cardiovascular Exam: Present: regular rate, normal rhythm, normal heart sounds GI/Abdominal exam: Present: soft. Absent: distended, tenderness, guarding Extremities exam: Present: normal inspection, full ROM Back exam: Present: normal inspection, full ROM Neurological exam: Present: alert, oriented X3 Psychiatric exam: Present: normal affect, anxious (Slightly anxious) Skin exam: Present: warm, dry, intact, normal color Course Vital Signs 03/31/19 03/31/19 12:38 14:12 Temperature 98.8 F 98.3 F Pulse Rate 89 80 Respiratory 16 18 Rate Blood Pressure 125/74 126/74 O2 Sat by Pulse 99 99 Oximetry Medical Decision Making - Medical Decision Making Patient is a 33-year-old female, , 14 week female presenting to emergency Department with a chief complaint of anxiety. Patient has been battling with anxiety after she had 2 miscarriages. All please suspecting PTSD from the miscarriages causing her to have anxiety attacks. Patient is otherwise completely asymptomatic. No abdominal pain, cramping, vaginal bleeding or discharge. Nausea is a baseline throughout the whole . She was able to calm down in the ED. CBC CMP and UA are unremarkable. heart tones are 140. Patient states she will follow-up with her OB, . Patient has otherwise been having regular follow-ups as recommended. Strict return parameters were thoroughly discussed with patient was understanding and agreeable. Case discussed with physician. - Lab Data Lab Results 03/31/19 Range/Units 12:56 Urine Color Yellow Urine Appearance Cloudy H (Clear) Urine pH 7.5 (5.0-8.0) Ur Specific [place] 1.010 (1.001-1.035) Urine Protein Negative (Negative) Urine Glucose (UA) Negative (Negative) Urine Ketones Negative (Negative) Urine Blood Negative (Negative) Urine Nitrite Negative (Negative) Urine Bilirubin Negative (Negative) Urine Urobilinogen <2.0 (<2.0) mg/dL Ur Leukocyte Esterase Trace H (Negative) Urine RBC 1 (0-5) /hpf Urine WBC 5 (0-5) /hpf Ur Squamous Epith Cells 10 H (0-4) /hpf Urine Bacteria Rare H (None) /hpf Hyaline Casts 3 H (0-2) /lpf Urine Mucus Rare H (None) /hpf Disposition Clinical Impression: Acute anxiety Disposition: HOME SELF-CARE Condition: Stable Instructions (If sedation given, give patient instructions): Generalized Anxiety Disorder (ED) Additional Instructions: Follow-up with the OB. Return to the emergency department if symptoms worsen. Is patient prescribed a controlled substance at d/c from ED?: No Referrals: Rachel Peterson DO [Primary Care Provider] - 1-2 days Time of Disposition: 14:05
[2019-03-31 14:13] VITALS: BP 126/74; PULSE 80; RESP 18; TEMP 98.3
== END 2019-03-31 14:13 | disposition home or self-care (01) ==
LOC: EC 12:10
DX: O99.342 Other mental disorders complicating pregnancy, second trimester (principal); F41.9 Anxiety disorder, unspecified; Z3A.14 14 weeks gestation of pregnancy
CPT/HCPCS: 81001; 87086; 99283

== ENCOUNTER 2019-08-07 13:18 | Outpatient (CLI) | payer OTHER ==
[2019-08-07 16:53] VITALS: BP 116/61; PULSE 90; RESP 18; TEMP 97.9
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
== END 2019-08-07 16:10 | disposition home or self-care (01) ==
LOC: FBPOP 13:18
PROVIDERS: ATTEND Obstetrics & Gynecology Obstetrics
DX: O99.89 Other specified diseases and conditions complicating pregnancy, childbirth and the puerperium (principal); G89.11 Acute pain due to trauma; Z3A.33 33 weeks gestation of pregnancy
CPT/HCPCS: 59025; G0463; 99213

== ENCOUNTER 2019-09-19 05:58 | Inpatient (IN) | payer OTHER ==
[2019-09-19] MEDS ORDERED: METHYLERGONOVINE 0.2 MG/ML 1 ML AMP IM PRN (06:19)
[2019-09-19] MEDS ORDERED: TERBUTALINE 1 MG/ML VIAL SQ PRN (06:19)
[2019-09-19] MEDS ORDERED: CARBOPROST TROMETHAMINE 250 MCG/ML 1 ML AMP IM PRN (06:19)
[2019-09-19] MEDS ORDERED: OXYTOCIN 10 UNIT/ML 1 ML VIAL IM PRN (06:19)
[2019-09-19] MEDS ORDERED: LIDOCAINE 0.5% (PF) 5 MG/ML (50 ML SDV) SQ PRN (06:19)
[2019-09-19] MEDS: LACTATED RINGERS 1,000 ML IV SCH ×2 (06:42→09:15)
[2019-09-19] MEDS: OXYTOCIN 30 UNITS/500 ML NS 30 UNIT in SALINE 1 500ML.BAG IV SCH (06:54)
[2019-09-19 07:48] LABS: Basophils % (A) 0 %; Eosinophils # (A) 0.3 k/uL (0-0.7); Eosinophils % (A) 3 %; HCT 32.7 % (34.0-46.0); Lymphocytes # (A) 1.9 k/uL (1.0-4.8); Lymphocytes % (A) 21 %; MCH 28.5 pg (25.0-35.0); MCHC 33.7 g/dL (31.0-37.0); MCV 84.4 fL (80.0-100.0); Mean Platelet Volume 11.9; Monocytes # (A) 0.5 k/uL (0-1.0); Monocytes % (A) 5 %; Neutrophils # (A) 6.3 k/uL (1.3-7.7); Neutrophils % (A) 69 %; RBC 3.87 m/uL (3.80-5.40); RDW 14.4 % (11.5-15.5); WBC 9.1 k/uL (3.8-10.6)
[2019-09-19 08:12] LABS: Platelet Count 205 k/uL (150-450)
[2019-09-19] MEDS ORDERED: fentaNYL (PF) 50 MCG/ML 5 ML AMP ONE (08:58)
[2019-09-19] MEDS ORDERED: SODIUM CHLORIDE 0.9% 100 ML BAG ONE (08:58)
[2019-09-19] MEDS ORDERED: ROPIVACAINE 5MG/ML 20ML VIAL ONE (08:58)
[2019-09-19] MEDS ORDERED: HYDROCORTISONE 2.5% RECTAL CREAM 30 GM TUBE RECTAL PRN (15:58)
[2019-09-19] MEDS ORDERED: ZOLPIDEM 5 MG TAB PO PRN (15:58)
[2019-09-19] MEDS ORDERED: diphenhydrAMINE 50 MG/ML 1 ML VIAL IVP PRN ×2 (15:58)
[2019-09-19] MEDS ORDERED: HYDROcodone/APAP 5-325MG 1 EACH TAB PO PRN (15:58)
[2019-09-19] MEDS ORDERED: diphenhydrAMINE 25 MG CAP PO PRN (15:58)
[2019-09-19] MEDS ORDERED: diphenhydrAMINE 50 MG CAP PO PRN (15:58)
[2019-09-19] MEDS ORDERED: BENZOCAINE/MENTHOL SPRAY 1 GM/SPRAY AEROSOL TOPICAL PRN (15:58)
[2019-09-19] MEDS ORDERED: SIMETHICONE 80 MG CHEWABLE PO PRN (15:58)
[2019-09-19] MEDS ORDERED: LANOLIN CREAM 5 GM TUBE TOPICAL PRN (15:58)
[2019-09-19] MEDS ORDERED: OXYTOCIN 20 UNITS/1000 ML NS 1,000 ML IV SCH (16:00)
--- NOTE | 2019-09-19 16:00 | P.HPOB ---
History of Present Illness H&P Date: 09/19/19 Chief Complaint: IUP at 39-0/7 weeks This is a pleasant 33-year-old 7 para 4024 at 39 0/7 weeks that presents to labor and delivery for elective induction of labor. Patient has extreme anxiety about labor and delivery and wishes induction. Patient has had an essentially uncomplicated , this morning patient notes good movement denies vaginal bleeding or loss of fluid. On bloodwork patient has a blood type of O+, rubella status immune, B surface antigen negative, HIV negative, RPR nonreactive, group beta strep culture negative. Review of Systems Constitutional: Denies chills, Denies fatigue Ears, nose, mouth and throat: Denies headache Cardiovascular: Reports leg edema Respiratory: Denies dyspnea Gastrointestinal: Denies constipation, Denies diarrhea, Denies nausea, Denies vomiting Genitourinary: Reports Past Medical History Past Medical History: No Reported History History of Any Multi-Drug Resistant Organisms: None Reported Past Surgical History: Appendectomy Additional Past Surgical History / Comment(s): lympoma removal Past Anesthesia/Blood Transfusion Reactions: No Reported Reaction Past Psychological History: No Psychological Hx Reported Additional Psychological History / Comment(s): depression after last delivery lasting more than six weeks. not medicated Smoking Status: Never smoker Past Alcohol Use History: None Reported Past Drug Use History: None Reported - Past Family History Mother Family Medical History: Thyroid Disorder Medications and Allergies Home Medications Medication Instructions Recorded Confirmed Type Pnv No.95/Ferrous Fum/Folic AC 1 each PO DAILY 08/07/19 09/19/19 History [ Multivitamin Tablet] Allergies Allergy/AdvReac Type Severity Reaction Status Date / Time No Known Allergies Allergy Verified 09/19/19 06:18 Exam Osteopathic Statement: *. No significant issues noted on an osteopathic structural exam other than those noted in the History and Physical/Consult. 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 On cervical exam she is 4/50/-2 amniotomy is performed and clear fluid was obtained. Results Result Diagrams: 09/19/19 07:01 Abnormal Lab Results - Last 24 Hours (Table) 09/19/19 Range/Units 07:01 Hgb 11.0 L (11.4-16.0) gm/dL Hct 32.7 L (34.0-46.0) % Assessment and Plan (1) Term Current Visit: Yes Status: Acute Code(s): Z34.90 - ENCNTR FOR SUPRVSN OF NORMAL , UNSP, UNSP TRIMESTER SNOMED Code(s): 16436260 Plan: Patient is admitted to labor and delivery for Pitocin induction of labor. Pitocin induction is begun per hospital protocol. Options for analgesia including Stadol and epidural are discussed with patient and she elects epidural. Anticipate spontaneous vaginal delivery later today.
--- NOTE | 2019-09-19 16:02 | P.PROBDLV ---
Vaginal Delivery Note - . Vaginal Delivery Note: This is a pleasant 33-year-old 7 para 3124 at 39-0/7 weeks that presents to labor and delivery for elective induction of labor. Patient has a history of fast labors. Patient was receiving routine care with myself which had been essentially uncomplicated. Patient presented to the hospital for Pitocin induction of labor. Pitocin induction was begun per hospital protocol. Patient underwent amniotomy when regular contractions were noted. Clear amniotic fluid was noted. Patient requested epidural placement soon after amniotomy was performed. Patient progressed slowly through labor eventually becoming complete began pushing and had a normal spontaneous vaginal delivery with a compound left hand at 1542, weight of 7 lbs. 5 oz. and Apgars of 8 and 8 at one and 5 minutes respectively. Patient did sustain a second-degree midline laceration during delivery. After two-minute delay the umbilical cord was doubly clamped and cut and the infant was handed off to the maternal abdomen. The placenta was then delivered spontaneously intact with a three-vessel cord being noted. On inspection the patient's vaginal vault a secondary midline laceration was noted was likely secondary to the compound hand of the . This was injected with lidocaine and repaired in the usual fashion with 3-0 Rapide. The uterus is noted to be firm and below the lump umbilicus at this time. A rectal exam was performed at this time and found to be normal in nature. All counts were noted to be correct 2 Estimated blood loss 100 mL Patient and infant tolerated delivery well and are resting comfortably.
[2019-09-19] MEDS: IBUPROFEN 600 MG TAB PO PRN (18:31)
[2019-09-19] MEDS: SENNOSIDES-DOCUSATE SODIUM 1 EACH TAB PO SCH (19:34)
[2019-09-20] MEDS: IBUPROFEN 600 MG TAB PO PRN ×4 (03:13→22:20)
[2019-09-20] MEDS: SENNOSIDES-DOCUSATE SODIUM 1 EACH TAB PO SCH ×2 (08:07→22:19)
--- NOTE | 2019-09-20 08:20 | P.PNOBGVD ---
Subjective - Subjective Principal diagnosis: PPD 1 Interval history: Patient is doing well . She is ambulating and voiding without difficulty. She states her pain is well-controlled with oral medication. She is breast-feeding without difficulty. Her lochia is moderate. Patient reports: Reports appetite normal, Reports voiding normally, Reports pain well controlled, Reports ambulating normally [place]: doing well, nursing well Objective - Latest Vital Signs Latest vital signs: Vital Signs Temp Pulse Resp BP Pulse Ox 09/20/19 00:00 97.9 F 79 15 105/66 99 09/19/19 20:00 98.3 F 102 H 15 101/60 97 09/19/19 18:00 102 H 16 118/71 09/19/19 17:30 97 17 110/68 09/19/19 17:00 91 16 112/68 09/19/19 16:46 96 17 117/63 09/19/19 16:30 99 16 117/63 09/19/19 16:15 96 16 117/65 09/19/19 16:00 98.2 F 108 H 17 113/62 Intake and Output 09/19/19 09/20/19 09/20/19 22:59 06:59 14:59 Other: # Voids 1 2 - Exam Extremities: Present: normal Abdomen: Present: normal appearance, soft Uterus: Present: normal, firm Assessment and Plan (1) Term Current Visit: Yes Status: Acute Code(s): Z34.90 - ENCNTR FOR SUPRVSN OF NORMAL , UNSP, UNSP TRIMESTER SNOMED Code(s): 65185598 (2) Obstetric vaginal laceration with second degree perineal laceration Current Visit: Yes Status: Acute Code(s): O70.1 - SECOND DEGREE PERINEAL LACERATION DURING DELIVERY SNOMED Code(s): 704211852 (3) Status post vaginal delivery Current Visit: No Status: Acute Code(s): CXS2490 - SNOMED Code(s): 755747879 Plan: This pleasant 33-year-old 7 [id number] status post normal spontaneous vaginal delivery yesterday afternoon. Patient is doing well . We'll continue routine care and plan discharge home tomorrow morning.
[2019-09-20 08:37] VITALS: RESP 16
[2019-09-20] MEDS: PRENATAL VIT-IRON-FOLIC ACID 1 EACH CAP PO SCH (11:55)
[2019-09-20] MEDS: ACETAMINOPHEN TAB 325 MG TAB PO PRN ×2 (11:55→19:23)
[2019-09-20] MEDS: LACTATED RINGERS 1,000 ML IV SCH ×2 (12:08→12:09)
[2019-09-20] MEDS: OXYTOCIN 30 UNITS/500 ML NS 30 UNIT in SALINE 1 500ML.BAG IV SCH (12:09)
[2019-09-21] MEDS: PRENATAL VIT-IRON-FOLIC ACID 1 EACH CAP PO SCH (08:01)
[2019-09-21] MEDS: IBUPROFEN 600 MG TAB PO PRN (08:01)
[2019-09-21] MEDS: SENNOSIDES-DOCUSATE SODIUM 1 EACH TAB PO SCH (08:02)
[2019-09-21 08:05] VITALS: BP 115/78; PULSE 91; TEMP 98.2
--- NOTE | 2019-09-21 08:41 | P.DS ---
Providers Date of admission: 09/19/19 05:58 Expected date of discharge: 09/21/19 Attending physician: Era Zuniga Primary care physician: Stated None - Discharge Diagnosis(es) (1) Term Current Visit: Yes Status: Acute (2) Obstetric vaginal laceration with second degree perineal laceration Current Visit: Yes Status: Acute (3) Status post vaginal delivery Current Visit: No Status: Acute Hospital Course: This is a pleasant 33-year-old 7 now para 4125 at 39 0/7 weeks that presented to labor and delivery for elective induction of labor. Patient was admitted to labor and delivery and Pitocin induction of labor was begun per hospital protocol. Patient progressed through labor eventually becoming uncomfortable and requesting epidural placement. Patient progressed to complete began pushing and had a normal spontaneous vaginal delivery of a viable female infant at 1542, weight of 7 lbs. 5 oz. and Apgars of 8 and 8 at one and 5 minutes respectively. Patient did sustain a second-degree midline laceration during delivery which was repaired in usual fashion. Patient's course has been uneventful. On this day #2 she is ambulating and voiding without difficulty. She is tolerating a regular diet without nausea or vomiting. She is breast-feeding without difficulty. She states her pain is well-controlled. She would like discharge home today. Patient Condition at Discharge: Good Plan - Discharge Summary New Discharge Prescriptions: No Action Pnv No.95/Ferrous Fum/Folic AC [ Multivitamin Tablet] 1 each PO DAILY Discharge Medication List Pnv No.95/Ferrous Fum/Folic AC [ Multivitamin Tablet] 1 each PO DAILY 08/07/19 [History] Patient Instructions/Handouts: Vaginal Delivery (DC), Vaginal Delivery (GEN) Discharge Disposition: HOME SELF-CARE
== END 2019-09-21 11:15 | disposition home or self-care (01) | DRG 807 ==
LOC: 4FBP 05:58
PROVIDERS: ADMIT Obstetrics & Gynecology Obstetrics; ATTEND Obstetrics & Gynecology Obstetrics
PROC: 0KQM0ZZ Repair Perineum Muscle, Open Approach (ICD-10-PCS; principal; 2019-09-19)
PROC: 10E0XZZ Delivery of Products of Conception, External Approach (ICD-10-PCS; principal; 2019-09-19)
PROC: 3E0R3BZ Introduction of Anesthetic Agent into Spinal Canal, Percutaneous Approach (ICD-10-PCS; principal; 2019-09-19)
PROC: 10907ZC Drainage of Amniotic Fluid, Therapeutic from Products of Conception, Via Natural or Artificial Opening (ICD-10-PCS; principal; 2019-09-19)
PROC: 3E033VJ Introduction of Other Hormone into Peripheral Vein, Percutaneous Approach (ICD-10-PCS; principal; 2019-09-19)
PROC: 00HU33Z Insertion of Infusion Device into Spinal Canal, Percutaneous Approach (ICD-10-PCS; principal; 2019-09-19)
DX: O99.344 Other mental disorders complicating childbirth (principal); Z37.0 Single live birth; F41.9 Anxiety disorder, unspecified; O70.1 Second degree perineal laceration during delivery; Z3A.39 39 weeks gestation of pregnancy; Z79.899 Other long term (current) drug therapy
CPT/HCPCS: 85025; 86850; 86900; 86901

== ENCOUNTER 2019-12-10 14:49 | Emergency (ER) | payer OTHER ==
[2019-12-10 14:54] VITALS: BP 125/72; PULSE 73; RESP 18; TEMP 98.3
--- NOTE | 2019-12-10 15:04 | ED ---
Skin/Abscess/FB HPI - General Chief complaint: Skin/Abscess/Foreign Body Stated complaint: poss allergic reaction Time Seen by Provider: 12/10/19 14:55 Source: patient, RN notes reviewed Mode of arrival: ambulatory Limitations: no limitations - History of Present Illness Initial comments: This a 34-year-old female presents emergency from chief complaint rash. Patient states the rash and has progressively worsened today. Patient states is very itchy notes her left hand, left arm and right lower back and buttocks region. He states that she had gone to the [employer] last night to get her chicken though. Patient states that she may have brushed against something that doesn't agree with her. She has no difficulty breathing or difficulty swallowing. - Related Data Home Medications Medication Instructions Recorded Confirmed Pnv No.95/Ferrous Fum/Folic AC 1 each PO DAILY 08/07/19 09/19/19 [ Multivitamin Tablet] Previous Rx's Medication Instructions Recorded predniSONE 50 mg PO DAILY #5 tab 12/10/19 Allergies Allergy/AdvReac Type Severity Reaction Status Date / Time No Known Allergies Allergy Verified 09/19/19 06:18 Review of Systems ROS Statement: Those systems with pertinent positive or pertinent negative responses have been documented in the HPI. ROS Other: All systems not noted in ROS Statement are negative. Past Medical History Past Medical History: No Reported History History of Any Multi-Drug Resistant Organisms: None Reported Past Surgical History: Appendectomy Additional Past Surgical History / Comment(s): lympoma removal Past Anesthesia/Blood Transfusion Reactions: No Reported Reaction Past Psychological History: No Psychological Hx Reported Smoking Status: Never smoker Past Alcohol Use History: None Reported Past Drug Use History: None Reported - Past Family History Mother Family Medical History: Thyroid Disorder General Exam Limitations: no limitations General appearance: alert, in no apparent distress Head exam: Present: atraumatic, normocephalic, normal inspection Neck exam: Present: normal inspection. Absent: tenderness, meningismus, lymphadenopathy Respiratory exam: Present: normal lung sounds bilaterally. Absent: respiratory distress, wheezes, rales, rhonchi, stridor Cardiovascular Exam: Present: regular rate, normal rhythm, normal heart sounds. Absent: systolic murmur, diastolic murmur, rubs, gallop, clicks Skin exam: Present: warm, dry, intact, normal color, rash (There is a rash that is slightly erythematous, raised and slightly vesicular on her left hand left arm and right lower back buttocks region) Course Vital Signs 12/10/19 14:50 Temperature 98.3 F Pulse Rate 73 Respiratory 18 Rate Blood Pressure 125/72 O2 Sat by Pulse 98 Oximetry Medical Decision Making - Medical Decision Making 34-year-old presented for rash. Patient has contact dermatitis most likely related to poison madelaine. Patient was started on steroids. Patient will follow-up with PCP and return for any worsening symptoms. Disposition Clinical Impression: Contact dermatitis Disposition: HOME SELF-CARE Condition: Stable Instructions (If sedation given, give patient instructions): Poison Madelaine (ED) Additional Instructions: Use topical hydrocortisone or Benadryl cream take [id number] antihistamines.Please return to the Emergency Department if symptoms worsen or any other concerns. Prescriptions: predniSONE 50 mg PO DAILY #5 tab Is patient prescribed a controlled substance at d/c from ED?: No Referrals: None,Stated [Primary Care Provider] - 1-2 days Time of Disposition: 15:03
== END 2019-12-10 15:15 | disposition home or self-care (01) ==
LOC: EC 14:49
DX: L25.9 Unspecified contact dermatitis, unspecified cause (principal)
CPT/HCPCS: 99282

== ENCOUNTER 2021-01-31 10:54 | Outpatient (CLI) | payer OTHER ==
[2021-01-31 11:52] VITALS: BP 121/69; PULSE 91; RESP 18; TEMP 97.8
--- NOTE | 2021-03-06 08:57 | P.MSEPDOC ---
Presenting Problems - Arrival Data Date of Arrival on Unit: 01/31/21 Time of Arrival on Unit: 10:54 Mode of Transport: Ambulatory - Complaint OB-Reason for Admission/Chief Complaint: Vaginal Bleeding Comment: pt states had pink spotting x3 this am Medical History - Information : 6 Para: 5 Term: 4 : 1 Abortions: Spontaneous or Elective: 0 Number of Living Children: 5 - Gestational Age Gestational Age by BIJAN (wks/days): 30 Weeks and 6 Days Review of Systems - Review of Systems Constitutional: No problems Breast: No problems ENT: No problems Cardiovascular: No problems Respiratory: No problems Gastrointestinal: No problems Genitourinary: No problems Musculoskeletal: No problems Neurological: No problems Skin: No problems Vital Signs - Temperature Temperature: 97.8 F Temperature Source: Axillary - Pulse Right Brachial Pulse Rate: 91 Pulse Assessment Method: Automatic Cuff - Respirations Respiratory Rate: 18 Oxygen Delivery Method: Room Air O2 Sat by Pulse Oximetry: 99 - Blood Pressure Right Arm Blood Pressure: 121/69 Blood Pressure Mean: 86 Blood Pressure Source: Automatic Cuff Medical Screen Scoring - Cervical Exam Dilation (cm): 0.5 Effacement (%): 0 Station: -5 Membranes: Intact - Uterine Contractions Frequency From (mins): 0 - Assessment - Baby A Baseline FHR: 140 Heart Rate - NICHD Category: Category I (Normal) NST: Reactive Physician Notification - Physician Notified Physician Notified Date: 01/31/21 Physician Notified Time: 11:30 Physician: April Gillespie New Order Received: Yes - Notification Comment Comment: reactive nst, no blood with speculum exam or on glove, no contractions palpated, vs wnl, ft/thick/high, orders to discharge pt home, increase oral fluids, pelvic rest, decrease activity, has appt with Dr. Zuniga on Maternal Triage Index - Maternal Triage Index Presenting for scheduled procedure w/no complaint: No - Stat/Priority 1 Stat Priority 1: No - Urgent/Priority 2 Urgent Priority 2: Yes Provider Notified: April Gillespie Provider Notified Time: 11:30 Criteria Met for Priority 2: pt 31 weeks gestation, c/o spotting x 3 this am Disposition - Disposition OB Disposition: Physician follow up in office, Triage, Discharge to home, Written follow up instructions reviewed Discharge Date: 01/31/21 Discharge Time: 11:40 I agree with the RN Medical Screening Exam: Yes Case reviewed; plan agreed upon as documented in EMR&OBIX.: Yes Diagnosis: SPOTTING COMPLICATING , THIRD TRIMESTER
== END 2021-01-31 11:40 | disposition home or self-care (01) ==
LOC: FBPOP 10:54
PROVIDERS: ATTEND Obstetrics & Gynecology
DX: O26.853 Spotting complicating pregnancy, third trimester (principal); Z3A.30 30 weeks gestation of pregnancy
CPT/HCPCS: 59025; G0463; 99213

== ENCOUNTER 2021-03-20 10:26 | Outpatient (CLI) | payer OTHER ==
[2021-03-20] MEDS ORDERED: LACTATED RINGERS 1,000 ML IV SCH (11:00)
[2021-03-20 12:23] VITALS: BP 113/77; PULSE 86; RESP 16; TEMP 97.7
--- NOTE | 2021-06-09 21:44 | P.MSEPDOC ---
Presenting Problems - Arrival Data Date of Arrival on Unit: 03/20/21 Time of Arrival on Unit: 10:24 Mode of Transport: Ambulatory - Complaint OB-Reason for Admission/Chief Complaint: Possible Onset of Labor Comment: irregular contractions throughout the night Medical History - Information : 6 Para: 5 Term: 5 : 0 Abortions: Spontaneous or Elective: 0 Number of Living Children: 5 - Gestational Age Gestational Age by BIJAN (wks/days): 37 Weeks and 5 Days Review of Systems - Review of Systems Constitutional: No problems Breast: No problems ENT: No problems Cardiovascular: No problems Respiratory: No problems Gastrointestinal: No problems Genitourinary: No problems Musculoskeletal: No problems Neurological: No problems Skin: No problems Vital Signs - Temperature Temperature: 97.7 F Temperature Source: Oral - Pulse Pulse Oximetery Pulse Rate: 86 Pulse Assessment Method: Pulse Oximetry - Respirations Respiratory Rate: 16 Oxygen Delivery Method: Room Air - Blood Pressure Right Arm Blood Pressure: 113/77 Blood Pressure Mean: 89 Blood Pressure Source: Automatic Cuff Medical Screen Scoring - Cervical Exam Dilation (cm): 4 Effacement (%): 50 Station: -2 Membranes: Intact - Uterine Contractions Frequency From (mins): 5 Frequency To (mins): 12 Duration From (seconds): 40 Duration To (seconds): 50 Intensity: Mild Resting: Soft to palpation - Assessment - Baby A Baseline FHR: 145 Heart Rate - NICHD Category: Category I (Normal) Maternal Triage Index - Maternal Triage Index Presenting for scheduled procedure w/no complaint: No - Stat/Priority 1 Stat Priority 1: No - Urgent/Priority 2 Urgent Priority 2: No - Prompt/Priority 3 Prompt Priority 3: No - Non-Urgent/Priority 4 Non-Urgent Priority 4: Yes Criteria Met for Priority 4: irregular contractions Disposition - Disposition OB Disposition: Discharge to home Discharge Date: 03/20/21 Discharge Time: 12:14 I agree with the RN Medical Screening Exam: Yes Case reviewed; plan agreed upon as documented in EMR&OBIX.: Yes Diagnosis: FALSE LABOR AT OR AFTER 37 COMPLETED WEEKS OF GESTATION
== END 2021-03-20 12:14 | disposition home or self-care (01) ==
LOC: FBPOP 10:26
PROVIDERS: ATTEND Obstetrics & Gynecology Obstetrics
DX: O47.1 False labor at or after 37 completed weeks of gestation (principal); Z3A.37 37 weeks gestation of pregnancy
CPT/HCPCS: 59025; 96360; G0463; 96367; 99213; 99214

== ENCOUNTER 2021-03-21 02:32 | Inpatient (IN) | payer OTHER ==
[2021-03-21] MEDS: LACTATED RINGERS 1,000 ML IV SCH ×2 (04:47→07:32)
[2021-03-21 06:28] LABS: Basophils % (A) 0 %; Eosinophils # (A) 0.1 k/uL (0-0.7); Eosinophils % (A) 1 %; HCT 34.2 % (34.0-46.0); Lymphocytes # (A) 2.9 k/uL (1.0-4.8); Lymphocytes % (A) 26 %; MCH 27.3 pg (25.0-35.0); MCHC 32.1 g/dL (31.0-37.0); MCV 84.9 fL (80.0-100.0); Mean Platelet Volume 16.5; Monocytes # (A) 0.4 k/uL (0-1.0); Monocytes % (A) 4 %; Neutrophils # (A) 7.3 k/uL (1.3-7.7); Neutrophils % (A) 67 %; Platelet Count 177 k/uL (150-450); RBC 4.03 m/uL (3.80-5.40); RDW 13.9 % (11.5-15.5)
[2021-03-21] MEDS ORDERED: LIDOCAINE 1% (PF) 10 MG/ML (30 ML SDV) SQ PRN (07:35)
[2021-03-21] MEDS ORDERED: CARBOPROST TROMETHAMINE 250 MCG/ML 1 ML AMP IM PRN (07:35)
[2021-03-21] MEDS ORDERED: OXYTOCIN 10 UNIT/ML 1 ML VIAL IM PRN (07:35)
[2021-03-21] MEDS ORDERED: TERBUTALINE 1 MG/ML VIAL SQ PRN (07:35)
[2021-03-21] MEDS ORDERED: METHYLERGONOVINE 0.2 MG/ML 1 ML AMP IM PRN (07:35)
[2021-03-21] MEDS ORDERED: OXYTOCIN 30 UNITS/500 ML NS 30 UNIT in SALINE 1 500ML.BAG IV SCH ×2 (07:45→09:15)
--- NOTE | 2021-03-21 07:57 | P.HPOB ---
History of Present Illness H&P Date: 03/21/21 Chief Complaint: IUP at 37 and 4/7 weeks, labor This 35-year-old 8 para 4125 at 37-4/7 weeks, estimated due date of 04/05. Patient has been receiving routine care with myself, bilateral dilated renal pelvis was diagnosed at her 20 week ultrasound, this has been a stable finding. Patient has been followed closely with growth ultrasounds to 4 weeks, weekly NSTs. Patient notes good movement. Patient states she has been giovanni for proximally 48 hours irregularly in nature. Patient presented to triage, cervical change was appreciated along with increasing discomfort. Patient denied loss of fluid. On bloodwork this patient has a blood type of O+, rubella status immune, RPR nonreactive, hepatitis B surface antigen negative, HIV negative, group beta strep cultures were negative. Review of Systems Constitutional: Reports fatigue, Denies chills, Denies fever Ears, nose, mouth and throat: Denies headache Cardiovascular: Reports leg edema Respiratory: Denies dyspnea Gastrointestinal: Denies constipation, Denies diarrhea, Denies nausea, Denies vomiting Genitourinary: Reports Past Medical History Past Medical History: No Reported History History of Any Multi-Drug Resistant Organisms: None Reported Past Surgical History: Appendectomy Additional Past Surgical History / Comment(s): lympoma removal Past Anesthesia/Blood Transfusion Reactions: No Reported Reaction Past Psychological History: No Psychological Hx Reported Additional Psychological History / Comment(s): depression after last delivery lasting more than six weeks. not medicated Smoking Status: Never smoker Past Alcohol Use History: None Reported Past Drug Use History: None Reported - Past Family History Mother Family Medical History: Thyroid Disorder Medications and Allergies Home Medications Medication Instructions Recorded Confirmed Type Pnv No.95/Ferrous Fum/Folic AC 1 each PO DAILY 08/07/19 03/21/21 History [ Multivitamin Tablet] Allergies Allergy/AdvReac Type Severity Reaction Status Date / Time No Known Allergies Allergy Verified 03/21/21 02:36 Exam Osteopathic Statement: *. No significant issues noted on an osteopathic structural exam other than those noted in the History and Physical/Consult. Vital Signs Temp Pulse Resp BP Pulse Ox 03/21/21 04:32 97.9 F 101 H 18 131/79 97 03/21/21 04:00 97.9 F 96 18 139/83 100 Intake and Output 03/20/21 03/20/21 03/21/21 14:59 22:59 06:59 Other: # Voids 2 Weight 83.461 kg Targeted physical exam is performed on this date. In general this a well- nourished well-developed female in no acute distress, breathing is noted to nonlabored, heart has a regular rate and rhythm, abdomen is gravid and appropriate for gestational age, on cervical exam she is 9/100/-1 station, amniotomy is performed and clear fluid was obtained. heart tones are noted to be category 1 and she is giovanni every 2-5 minutes. Results Result Diagrams: 03/21/21 04:45 Abnormal Lab Results - Last 24 Hours (Table) 03/21/21 Range/Units 04:45 WBC 11.0 H (3.8-10.6) k/uL Hgb 11.0 L (11.4-16.0) gm/dL Assessment and Plan (1) Active labor Current Visit: Yes Status: Acute Code(s): QHL6160 - SNOMED Code(s): 743929833 (2) Term Current Visit: No Status: Acute Code(s): Z34.90 - ENCNTR FOR SUPRVSN OF NORMAL , UNSP, UNSP TRIMESTER SNOMED Code(s): 30031997 Plan: 35-year-old 8 para 4125 at 37-4/7 weeks that presents to labor and delivery with complaints of regular painful contractions, labor. Patient is admitted to labor and delivery, and desires epidural placement. Epidural was placed prior to my arrival on labor and delivery by the anesthesia department. Anticipate spontaneous vaginal delivery.
--- NOTE | 2021-03-21 08:00 | P.PROBDLV ---
Vaginal Delivery Note - . Vaginal Delivery Note: 35-year-old 8 para 4124 at 37 4/7 weeks presented to labor and delivery with complaints of regular painful contractions. Patient was noted to be in active labor therefore was admitted to labor and delivery. Patient requested epidural placement, anesthesia did place epidural without difficulty. Patient underwent amniotomy and clear fluid was obtained. Patient progressed to complete upon of the head patient was placed in a modified lithotomy position, with excellent maternal effort patient had delivery of the head followed by the anterior/posterior shoulder. The infant was then delivered and placed on the maternal abdomen. After two-minute delayed the umbilical cord was doubly clamped and cut. Cord blood was then taken. The placenta was delivered spontaneously intact with three-vessel cord being noted. Uterus is noted be firm and below the umbilicus. A straight blood loss 100 mL. On inspection the patient's vaginal vault a first-degree vaginal laceration was appreciated. This vaginal laceration was repaired in the usual fashion with 3-0 Rapide. Patient and tolerated delivery well and are resting comfortably. All counts are noted to be correct 2
[2021-03-21] MEDS ORDERED: HYDROCORTISONE 2.5% RECTAL CREAM 30 GM TUBE RECTAL PRN (09:08)
[2021-03-21] MEDS ORDERED: ZOLPIDEM 5 MG TAB PO PRN (09:08)
[2021-03-21] MEDS ORDERED: LANOLIN CREAM 5 GM TUBE TOPICAL PRN (09:08)
[2021-03-21] MEDS ORDERED: diphenhydrAMINE 50 MG CAP PO PRN (09:08)
[2021-03-21] MEDS ORDERED: SIMETHICONE 80 MG CHEWABLE PO PRN (09:08)
[2021-03-21] MEDS ORDERED: diphenhydrAMINE 25 MG CAP PO PRN (09:08)
[2021-03-21] MEDS ORDERED: diphenhydrAMINE 50 MG/ML 1 ML VIAL IVP PRN ×2 (09:08)
[2021-03-21] MEDS ORDERED: BENZOCAINE/MENTHOL SPRAY 1 GM/SPRAY AEROSOL TOPICAL PRN (09:08)
[2021-03-21 09:18] LABS: Large Platelets Present
[2021-03-21] MEDS: IBUPROFEN 600 MG TAB PO PRN ×3 (09:23→22:04)
[2021-03-21] MEDS ORDERED: ROPIVACAINE 100 MG, fentaNYL (PF). 200 MCG in SODIUM CHLORIDE 0.9% 76 ML EPIDURAL ONE (10:08)
[2021-03-21] MEDS: ACETAMINOPHEN TAB 325 MG TAB PO PRN ×2 (12:11→18:58)
[2021-03-21] MEDS: SENNOSIDES-DOCUSATE SODIUM 1 EACH TAB PO SCH (22:04)
[2021-03-22] MEDS: ACETAMINOPHEN TAB 325 MG TAB PO PRN ×4 (01:16→23:27)
[2021-03-22] MEDS: IBUPROFEN 600 MG TAB PO PRN ×3 (03:59→19:54)
[2021-03-22 07:52] LABS: Basophils % (A) 0 %; Eosinophils # (A) 0.5 k/uL (0-0.7); Eosinophils % (A) 6 %; HCT 30.4 % (34.0-46.0); HGB 9.9 gm/dL (11.4-16.0); Lymphocytes # (A) 2.8 k/uL (1.0-4.8); Lymphocytes % (A) 32 %; MCH 27.7 pg (25.0-35.0); MCHC 32.5 g/dL (31.0-37.0); MCV 85.5 fL (80.0-100.0); Mean Platelet Volume 14.7; Monocytes # (A) 0.3 k/uL (0-1.0); Monocytes % (A) 3 %; Neutrophils % (A) 57 %; Platelet Count 137 k/uL (150-450); RBC 3.56 m/uL (3.80-5.40); RDW 13.7 % (11.5-15.5); WBC 8.7 k/uL (3.8-10.6)
--- NOTE | 2021-03-22 08:53 | P.PNOBGVD ---
Subjective - Subjective Principal diagnosis: day one, normal spontaneous vaginal delivery Interval history: Patient is doing well. She is ambulating and voiding without difficulty. She states her pain is well-controlled with oral ibuprofen. Her lochia is minimal. She denies concerns. She is breast-feeding without difficulty. Patient reports: Reports appetite normal, Reports voiding normally, Reports pain well controlled, Reports ambulating normally Albert: doing well Objective - Latest Vital Signs Latest vital signs: Vital Signs Temp Pulse Resp BP Pulse Ox 03/22/21 00:00 97.2 F L 67 16 102/66 97 03/21/21 20:00 98.3 F 77 16 112/73 97 03/21/21 16:00 98.0 F 82 16 123/75 97 03/21/21 12:17 98.9 F 96 16 100/61 03/21/21 09:49 99.2 F 97 16 120/70 03/21/21 09:19 90 16 126/73 03/21/21 08:49 75 16 125/73 Intake and Output 03/21/21 03/22/21 03/22/21 22:59 06:59 14:59 Intake Total 500 Output Total 100 Balance 400 Intake: IV 500 Output: Estimated Blood Loss 100 Other: # Voids 2 1 - Exam Extremities: Present: normal, edema Abdomen: Present: normal appearance, soft Uterus: Present: normal, firm - Labs Labs: Abnormal Lab Results - Last 24 Hours (Table) 03/22/21 Range/Units 07:26 RBC 3.56 L (3.80-5.40) m/uL Hgb 9.9 L (11.4-16.0) gm/dL Hct 30.4 L (34.0-46.0) % Plt Count 137 L (150-450) k/uL Assessment and Plan (1) Active labor Current Visit: Yes Status: Acute Code(s): DJS2969 - SNOMED Code(s): 121445859 (2) Term Current Visit: No Status: Acute Code(s): Z34.90 - ENCNTR FOR SUPRVSN OF NORMAL , UNSP, UNSP TRIMESTER SNOMED Code(s): 61585408 (3) Laceration, obstetrical, first degree Current Visit: Yes Status: Acute Code(s): O70.0 - FIRST DEGREE PERINEAL LACERATION DURING DELIVERY SNOMED Code(s): 32259655 (4) Status post vaginal delivery Current Visit: No Status: Acute Code(s): MOK7022 - SNOMED Code(s): 511467910 Plan: Patient is doing well . Continue routine care, plan discharge home tomorrow.
[2021-03-22] MEDS: SENNOSIDES-DOCUSATE SODIUM 1 EACH TAB PO SCH ×2 (09:41→19:54)
[2021-03-22 09:55] LABS: Large Platelets Present
[2021-03-23 01:05] VITALS: RESP 16
[2021-03-23] MEDS: IBUPROFEN 600 MG TAB PO PRN (03:24)
[2021-03-23] MEDS: ACETAMINOPHEN TAB 325 MG TAB PO PRN (06:30)
[2021-03-23 09:39] VITALS: BP 123/74; PULSE 74; TEMP 98.2
[2021-03-23] MEDS: SENNOSIDES-DOCUSATE SODIUM 1 EACH TAB PO SCH (09:40)
--- NOTE | 2021-03-23 10:19 | P.DS ---
Providers Date of admission: 03/21/21 05:00 Expected date of discharge: 03/23/21 Attending physician: Era Zuniga Primary care physician: Stated None - Discharge Diagnosis(es) (1) Active labor Current Visit: Yes Status: Acute (2) Term Current Visit: No Status: Acute (3) Laceration, obstetrical, first degree Current Visit: Yes Status: Acute (4) Status post vaginal delivery Current Visit: No Status: Acute Hospital Course: 35-year-old 8 para 4124 presented to labor and delivery at 37-4/7 weeks with complaints of regular painful contractions. Patient was noted to be in early labor, was monitored for over an hour with minimal cervical change therefore was offered observation. Patient quickly progressed to active labor upon admission. Patient did request epidural placement. Anesthesia placed epidural without difficulty. Patient underwent amniotomy clear fluid was obtained. Patient progressed quickly to complete began pushing and had a normal spontaneous vaginal delivery of a viable male . Patient did sustain a first-degree vaginal laceration at delivery, this was repaired in the usual fashion with 3-0 Rapide. Patient's course has been uneventful. On this day #2 she is ambulating and voiding without difficulty. She tolerating regular diet without nausea or vomiting. She states her pain is well-controlled. She is breast-feeding without difficulty. She states she wishes discharge home. Patient Condition at Discharge: Good Plan - Discharge Summary New Discharge Prescriptions: No Action Pnv No.95/Ferrous Fum/Folic AC [ Multivitamin Tablet] 1 each PO DAILY Discharge Medication List Pnv No.95/Ferrous Fum/Folic AC [ Multivitamin Tablet] 1 each PO DAILY 08/07/19 [History] Follow up Appointment(s)/Referral(s): Era Zuniga DO [Doctor of Osteopathic Medicine] - 4 Weeks Patient Instructions/Handouts: Vaginal Delivery (GEN), Vaginal Delivery (DC) Activity/Diet/Wound Care/Special Instructions: Patient is counseled on [id number] ibuprofen 600 mg as needed for discomfort, patient is to follow-up in the office for routine check at 4 weeks. Should she have any concerns prior to this appointment she is urged to call the office. Discharge Disposition: HOME SELF-CARE
== END 2021-03-23 14:02 | disposition home or self-care (01) | DRG 807 ==
LOC: FBPOP 02:32 → 4FBP 04:10 → OBSVTOIN 05:00
PROVIDERS: ADMIT Obstetrics & Gynecology Obstetrics; ATTEND Obstetrics & Gynecology Obstetrics
PROC: 10E0XZZ Delivery of Products of Conception, External Approach (ICD-10-PCS; principal; 2021-03-21)
PROC: 0HQ9XZZ Repair Perineum Skin, External Approach (ICD-10-PCS; 2021-03-21)
DX: O70.0 First degree perineal laceration during delivery (principal); Z37.0 Single live birth; Z3A.37 37 weeks gestation of pregnancy
CPT/HCPCS: 59025; 85025; 86850; 86900; 86901; 99213

== ENCOUNTER → 2021-04-01 | Outpatient (CLI) | payer OTHER ==
--- NOTE | 2021-04-01 10:43 | US ---
EXAMINATION TYPE: US abdomen complete DATE OF EXAM: 04/01/2021 COMPARISON: None CLINICAL HISTORY: 35 year-old female R10.11 RUQ pain. TECHNIQUE: Multiple sonographic images of the abdomen are obtained. FINDINGS: EXAM MEASUREMENTS: Liver Length: 17.6 cm Gallbladder Wall: 0.2 cm CBD: 0.7 cm CHD: 1.1 cm Spleen: 12.6 cm Right Kidney: 10.3 x 4.2 x 4.2 cm Left Kidney: 10.7 x 5.2 x 4.8 cm Pancreas: wnl Liver: Borderline enlarged. Homogeneous appearance without focal lesion. Gallbladder: Two mobile stones seen= 1.4 cm and 1.3 cm. Evidence for sonographic Jaramillo's sign: neg CBD: Dilated CHD: Dilated Spleen: Upper limits of normal in size Right Kidney: No hydronephrosis or evident masses seen Left Kidney: No hydronephrosis or evident masses seen Upper IVC: wnl Abd Aorta: No AAA visualized IMPRESSION: 1. Two gallstones measuring up to 1.4 cm. No ancillary findings of acute cholecystitis. 2. There is dilatation of the bile duct up to 1.1 cm. Correlate with alkaline phosphatase and bilirub in levels to exclude choledocholithiasis or other biliary obstruction.
== END | disposition home or self-care (01) ==
LOC: RADUSWWP 09:55
PROVIDERS: ATTEND Family Medicine
DX: K80.20 Calculus of gallbladder without cholecystitis without obstruction (principal); K83.8 Other specified diseases of biliary tract
CPT/HCPCS: 76700

== ENCOUNTER → 2021-05-10 | Outpatient (CLI) | payer OTHER ==
--- NOTE | 2021-05-10 07:58 | MR ---
EXAMINATION TYPE: MR MRCP DATE OF EXAM: 05/10/2021 COMPARISON: Ultrasound abdomen April 01, 2021 HISTORY: K81.1 chronic cholecystitis, Abd pain Standard multiplanar, multisequence MRI departmental protocol Multiplanar, multisequence images of the abdomen were acquired without contrast. Thin and thick slice MRCP imaging performed without contrast. FINDINGS: Liver/gallbladder/pancreas/biliary system: Liver is normal in size. No significant signal dropout. No concerning solid or cystic masses. Pancreas appears slightly bulky particularly in the tail. No conc erning solid or cystic mass in the body or tail.. Gallbladder shows intraluminal 1.5 cm gallstone. Th ere is a smaller 7 mm stone near the gallbladder neck and larger 14 mm stone in the gallbladder neck coronal image 17. No surrounding fluid or abnormal gallbladder wall thickening. There is no significa nt intrahepatic or extrahepatic biliary dilatation currently on MRCP imaging. Tortuous but nondilated cystic duct is identified. No intraluminal gallstone is seen. Pancreas shows poorly visualized duct. Visualized portion shows normal insertion at the ampulla. There is a 7 x 3 mm eccentric prominent po rtion in the head MRCP image 85 series 1001 of uncertain etiology appears contiguous with the duct. Other: Visualized lung bases are clear. Spleen remains upper limits of normal in size. No adrenal mas ses. No suspicious renal masses or hydronephrosis. No bowel dilatation. Visualized osseous structures are intact. No intra-abdominal ascites. Visualized osseous structures are intact. IMPRESSION: 1. Intraluminal gallstones redemonstrated. Interval resolution of mild to moderate extrahepatic bilia ry dilatation. 2. There is 7 x 3 mm eccentric cystic prominence pancreatic head, is felt contiguous with the main pa ncreatic duct without associated pancreatic ductal dilatation, suspicious for main duct IPMN versus o ther cystic lesion. Advise GI referral. Advise at minimum repeat MRI/MRCP with and without contrast i n one year time to reassess.
== END | disposition home or self-care (01) ==
LOC: RADMRIMAIN 06:29
PROVIDERS: ATTEND Surgery
DX: K80.20 Calculus of gallbladder without cholecystitis without obstruction (principal); K86.2 Cyst of pancreas
CPT/HCPCS: 74181

== ENCOUNTER 2021-06-07 10:19 | Day surgery (SDC) | payer OTHER ==
[2021-06-03 13:21] VITALS: BMI 28.7
--- NOTE | 2021-06-07 09:33 | P.GSHP ---
History of Present Illness H&P Date: 06/07/21 Chief Complaint: Chronic cholecystitis 35-year-old female here today for elective cholecystectomy. Patient has had intermittent complaints of right upper quadrant pain during recent pregnancies. She had an episode in the last few months where the pain was associated with d ark colored urine. Labs were checked and the patient was noted to have elevated alkaline phosphatase. We did order a MRCP which showed multiple gallstones without evidence for choledocholithiasis. A 7 mm cystic lesion at the head of the pancreas was seen and additional follow-up by GI was advised. Recent repeat liver enzymes show improvement in her alkaline phosphatase and transaminases. Past Medical History Past Medical History: No Reported History History of Any Multi-Drug Resistant Organisms: None Reported Past Surgical History: Appendectomy Additional Past Surgical History / Comment(s): Lympoma removal. Past Anesthesia/Blood Transfusion Reactions: No Reported Reaction Past Psychological History: Depression Additional Psychological History / Comment(s): Hx Depression, resolved now. Smoking Status: Never smoker Past Alcohol Use History: None Reported Past Drug Use History: None Reported - Past Family History Mother Family Medical History: Cancer, Thyroid Disorder Additional Family Medical History / Comment(s): Breast cancer. Medications and Allergies Home Medications Medication Instructions Recorded Confirmed Type No Known Home Medications 06/03/21 06/03/21 History Allergies Allergy/AdvReac Type Severity Reaction Status Date / Time No Known Allergies Allergy Verified 06/03/21 13:12 Surgical - Exam Physical exam: General: Well-developed, well-nourished HEENT: Normocephalic, sclerae nonicteric Abdomen: Nontender, nondistended Extremities: No edema Neuro: Alert and oriented Assessment and Plan (1) Chronic cholecystitis Narrative/Plan: 35-year-old female with chronic cholecystitis. We'll proceed with laparoscopic, possible open cholecystectomy at this time. Risks of bleeding, infection, bile leak, bile duct injury, retained common bile duct stone, trocar injury, conversion to an open procedure, hernia, anesthesia related complications were reviewed. The patient understands and wishes to proceed. Plan tertiary care referral to GI for possible endoscopic ultrasound to evaluate pancreatic cystic lesion after the patient recovers from this surgery. Status: Acute Code(s): K81.1 - CHRONIC CHOLECYSTITIS SNOMED Code(s): 06905830
[~2021-06-07 10:19] MED LIST: ACETAMINOPHEN TAB 500 MG TAB PO PRN; DEXAMETHASONE SOD PHOSPHATE 4 MG/ML 1 ML VIAL IV ONE; HEPARIN SODIUM,PORCINE/PF 5,000 UNIT/0.5 ML SYRINGE SQ PRN; MIDAZOLAM 2 MG/2 ML VIAL IV PRN; SCOPOLAMINE 1 MG/72 HR PATCH TRANSDERM ONE
[2021-06-07] MEDS ORDERED: LIDOCAINE 1% (10MG/ML) FOR IV START INTRADERMA ONE (10:48)
[2021-06-07] MEDS: LACTATED RINGERS 1,000 ML IV SCH ×2 (10:49→14:55)
[2021-06-07] MEDS: ONDANSETRON 4 MG/2 ML VIAL IVP ONE ×2 (10:54→15:06)
[2021-06-07] MEDS ORDERED: KETOROLAC 15 MG/ML 1 ML VIAL ONE (11:55)
[2021-06-07] MEDS ORDERED: MIDAZOLAM 2 MG/2 ML VIAL ONE (11:55)
[2021-06-07] MEDS ORDERED: NEOSTIGMINE 1 MG/ML 10 ML VIAL ONE (11:55)
[2021-06-07] MEDS ORDERED: fentaNYL (PF) 50 MCG/ML 2 ML AMP ONE (11:55)
[2021-06-07] MEDS ORDERED: ROCURONIUM 10 MG/ML (5 ML VIAL) IV ONE (11:55)
[2021-06-07] MEDS ORDERED: LIDOCAINE 1% INJ 10MG/ML (20 ML MDV) ONE (11:55)
[2021-06-07] MEDS ORDERED: PROPOFOL 10 MG/ML 20 ML VIAL IV ONE (11:55)
[2021-06-07] MEDS ORDERED: SUCCINYLCHOLINE CHLORIDE 100 MG/5 ML SYR IV ONE (11:55)
[2021-06-07] MEDS ORDERED: SUGAMMADEX SODIUM 200 MG/2 ML SDV IV ONE (11:55)
[2021-06-07] MEDS ORDERED: GLYCOPYRROLATE 0.2 MG/ML 2 ML VIAL ONE (11:55)
[2021-06-07] MEDS ORDERED: BUPIVACAIN-EPI 0.25%-1:200,000 30 ML VIAL SQ ONE (11:56)
[2021-06-07] MEDS ORDERED: LACTATED RINGERS 1,000 ML IV ONE (12:48)
[2021-06-07] MEDS ORDERED: ACETAMINOPHEN TAB 325 MG TAB PO SCH (13:30)
--- NOTE | 2021-06-07 13:30 | P.OP ---
Date of Procedure: 06/07/21 Procedure(s) Performed: PREOPERATIVE DIAGNOSIS: Chronic cholecystitis POSTOPERATIVE DIAGNOSIS: Same PROCEDURE: Laparoscopic cholecystectomy SURGEON: Bailey EBL: 20 mL ANESTHESIA: Gen. COMPLICATIONS: None OPERATIVE PROCEDURE: The patient was brought and placed on the operating room table in the supine position. The patient was placed under general anesthesia at that time. The abdomen was prepped and draped in the usual sterile fashion. A small vertical infraumbilical incision was made. The fascia was grasped with the Meghana forceps. The fascia was retracted anteriorly. The Veress needle was advanced into the peritoneal cavity. The saline drop test was normal. Insufflation took place up to 15 mmHg. A 5 mm optical trocar was advanced and the peritoneal cavity. 2 additional 5 mm trochars were placed in the right upper quadrant under direct visualization. A 12 mm trocar was advanced into the epigastric incision site. The gallbladder was retracted superiorly and laterally. The gallbladder was significantly distended with chronic inflammatory changes. The peritoneum overlying the infundibulum was bluntly dissected. The patient's cystic duct was visualized. The junction between the cystic duct common and hepatic duct was identified. The critical view of safety was achieved after blunt dissection. The cystic duct was then divided after placement of 3 12 mm clips on the patient's side and one on the specimen side. The cystic artery was identified and clipped as well. The clip on the specimen side of the cystic duct was loose and clear fluid came out of the gallbladder consistent with hydrops. The larger of the 2 stones was lodged in the neck of the gallbladder. A small vessel was seen along the gallbladder fossa and clipped as well. The gallbladder was then removed from the liver bed using electrocautery. The gallbladder was then removed from the epigastric trocar site with an Endo Catch bag. The gallbladder fossa was irrigated with saline. There was no evidence of any bleeding or biliary drainage seen. The fascia at the 12 millimeter site was closed using a Ilya-Priyanka 0 Vicryl stitch. The trochars were then removed. The skin at all 4 sites was closed using a 4-0 Monocryl stitch. Skin glue was utilized on the incision sites. At the end of this procedure the sponge and needle counts were correct. DISPOSITION: Stable to the recovery room
[2021-06-07 13:33] VITALS: TEMP 98
[2021-06-07] MEDS: HYDROmorphone 0.5 MG/0.5 ML SYRINGE IVP PRN ×3 (13:42→14:03)
[2021-06-07] MEDS ORDERED: IBUPROFEN 600 MG TAB PO SCH (16:30)
[2021-06-07 16:49] VITALS: RESP 16
[2021-06-07 17:33] VITALS: BP 111/66; PULSE 78
== END 2021-06-07 18:28 | disposition home or self-care (01) ==
LOC: OR 10:19
PROVIDERS: ATTEND Surgery
DX: K81.1 Chronic cholecystitis (principal); F32.A Depression, unspecified; Z80.9 Family history of malignant neoplasm, unspecified
CPT/HCPCS: 47562; 81025; 88304; J2250; J1100; J2710; J0690; J2405; J2001; J3010; J1885; J0330; J2704; J1170; J1790; J1644

== ENCOUNTER 2022-10-25 11:49 | Outpatient (CLI) | payer OTHER ==
[2022-10-25 13:33] VITALS: BP 123/72; PULSE 90; RESP 16
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
== END 2022-10-25 13:25 | disposition home or self-care (01) ==
LOC: FBPOP 11:49
PROVIDERS: ATTEND Obstetrics & Gynecology Obstetrics
DX: O26.893 Other specified pregnancy related conditions, third trimester (principal); O9A.213 Injury, poisoning and certain other consequences of external causes complicating pregnancy, third trimester; Z3A.31 31 weeks gestation of pregnancy; V89.2XXA Person injured in unspecified motor-vehicle accident, traffic, initial encounter; Y92.89 Other specified places as the place of occurrence of the external cause
CPT/HCPCS: 59025; G0463; 99213

== ENCOUNTER → 2023-05-18 | Outpatient (CLI) | payer OTHER ==
--- NOTE | 2023-05-18 18:01 | US ---
EXAMINATION TYPE: US transvaginal DATE OF EXAM: 05/18/2023 COMPARISON: US CLINICAL INDICATION: Female, 37 years old with history of R10.11 RUQ PAIN; Pt states generalized pelv ic pain TECHNIQUE: Transvaginal (TV). Transvaginal sonographic images of the pelvis were acquired. Date of LMP: 1 week ago EXAM MEASUREMENTS: Uterus: 7.6 x 3.6 x 5.2 cm Endometrial Stripe: 0.5 cm Right Ovary: 3.6 x 2.7 x 2.9 cm Left Ovary: 3.7 x 2.6 x 3.1 cm 1. Uterus: Anteverted wnl 2. Endometrium: wnl 3. Right Ovary: wnl, multiple peripheral follicles. 4. Left Ovary: wnl, multiple peripheral follicles. 5. Bilateral Adnexa: wnl 6. Posterior cul-de-sac: wnl IMPRESSION: 1. No evidence for acute process. 2. Endometrium within normal limits. 3. Multiple peripheral follicles compatible with polycystic ovarian morphology.
== END | disposition home or self-care (01) ==
LOC: RADMAMWWP 13:45
PROVIDERS: ATTEND Family Medicine
DX: R10.11 Right upper quadrant pain (principal); R10.2 Pelvic and perineal pain
CPT/HCPCS: 76830

== ENCOUNTER 2024-01-04 17:33 | Emergency (ER) | payer OTHER ==
[2024-01-04 18:05] VITALS: TEMP 98.1
--- NOTE | 2024-01-04 18:33 | ED ---
Skin/Abscess/FB HPI - General Chief complaint: Skin/Abscess/Foreign Body Stated complaint: topical allergic reaction/22wks preg Time Seen by Provider: 01/04/24 18:08 Source: patient, RN notes reviewed Mode of arrival: ambulatory Limitations: no limitations - History of Present Illness Initial comments: This is a 38-year-old female who presents to the emergency department for a rash. Patient is approximately 22 weeks . States that she first noticed a rash on the palms of her hands that started to track up the forearms. She noticed this after waking up from a nap with her daughter. Unsure if she may have come into close contact with her mattress, which she has an allergy to. She called her OB and took Benadryl. She took Benadryl a couple of times but noticed that the rash then spread to her right knee. Because the rash started to spread, she came to the emergency department for evaluation. Aside from the mattress she cannot think of anything she may have come into contact with. Denies any chest pain or shortness of breath associated with this. Denies any vaginal bleeding. MD complaint: rash - Related Data Home Medications Medication Instructions Recorded Confirmed No Known Home Medications 12/08/22 12/08/22 Allergies Allergy/AdvReac Type Severity Reaction Status Date / Time memory foam Allergy Rash/Hives Uncoded 01/04/24 18:06 Review of Systems ROS Statement: Those systems with pertinent positive or pertinent negative responses have been documented in the HPI. ROS Other: All systems not noted in ROS Statement are negative. Past Medical History Past Medical History: No Reported History History of Any Multi-Drug Resistant Organisms: None Reported Past Surgical History: Appendectomy Additional Past Surgical History / Comment(s): Lympoma removal. Past Anesthesia/Blood Transfusion Reactions: No Reported Reaction Past Psychological History: Depression Smoking Status: Never smoker Past Alcohol Use History: None Reported Past Drug Use History: None Reported - Past Family History Mother Family Medical History: Cancer, Thyroid Disorder Additional Family Medical History / Comment(s): Breast cancer. General Exam Limitations: no limitations General appearance: alert, in no apparent distress Head exam: Present: atraumatic, normocephalic, normal inspection Respiratory exam: Present: normal lung sounds bilaterally. Absent: respiratory distress, wheezes, rales, rhonchi, stridor Cardiovascular Exam: Present: regular rate, normal rhythm, normal heart sounds. Absent: systolic murmur, diastolic murmur, rubs, gallop, clicks Neurological exam: Present: alert, oriented X3, CN II-XII intact Psychiatric exam: Present: normal affect Skin exam: Present: other (Urticaria to the bilateral palms, forearms, and right knee) Course Vital Signs 01/04/24 01/04/24 18:01 19:41 Temperature 98.1 F 98.1 F Pulse Rate 118 H 91 Respiratory 20 18 Rate Blood Pressure 118/73 117/78 O2 Sat by Pulse 99 100 Oximetry Medical Decision Making - Medical Decision Making This is a 38-year-old female who presents to the emergency department for a rash. Was pt. sent in by a medical professional or institution? @ -No Did you speak to anyone other than the patient for history? @ -No Did you review nursing and triage notes? @ -Yes, and I agree, it is accurate with regards to the patient's symptoms. Were old charts reviewed? @ -No Differential Diagnosis? @ -Roseola, measles, Lyme disease, erythema multiforme, cellulitis, toxic shock syndrome, Darrian Crow syndrome, Kawasaki disease, geovani mountain spotted fever, contact dermatitis, allergic dermatitis, measles, mumps, rubella, varicella, meningococcal disease, drug reaction, coxsackievirus, This is not meant to be an all-inclusive list. EKG interpreted by me (3pts min.)? @ -Not obtained X-rays interpreted by me (1pt min.)? @ -Not obtained CT interpreted by me (1pt min.)? @ -Not obtained U/S interpreted by me (1pt. min.)? @ -Not obtained What testing was considered but not performed? (CT, X-rays, U/S, labs)? Why? @ -CBC and CMP given the possibility of other pathologies such as ICP, however patient declined. What meds were considered but not given? Why? @ -Famotidine, however patient declined. Did you discuss the management of the patient with other professionals? @ -No Did you reconcile home meds? @ -No Was smoking cessation discussed for >3mins.? @ -No Was critical care preformed (if so, how long)? @ -No Were there social determinants of health that impacted care today? How? (Homelessness, low income, unemployed, alcoholism, drug addiction, transportation, low edu. Level, literacy, decrease access to med. care, detention, rehab)? @ -No Was there de-escalation of care discussed even if they declined? (Discuss DNR or withdrawal of care, Hospice)? @ -No What co-morbidities impacted this encounter? (DM, HTN, Smoking, COPD, CAD, Cancer, CVA, Hep., AIDS, mental health diagnosis, sleep apnea, morbid obesity)? @ - Was patient admitted / discharged? @ -Discharged. She appeared to have urticaria on the bilateral hands, forearms, and a few patches on the right knee. I did offer to obtain lab work including a CBC and CMP to evaluate for other pathologies such as idiopathic cholestasis of , however patient declined as she was fairly certain this was a reaction. She had taken Benadryl before arrival. We discussed famotidine, however she declined. Triamcinolone cream was provided and applied to the affected areas. She did have improvement in her symptoms with the use of triamcinolone cream. Patient was able to be discharged home at that point. Advised she continue with the Benadryl and add [id number] famotidine 1-2 times daily. She was sent home with the triamcinolone cream to continue using 3-4 times a day as well. Patient discharged home in stable condition. Case discussed with ED attending Dr. Ambriz. Return precautions reviewed in depth, the patient is instructed to return to the emergency department with any new, worsening, or concerning symptoms. Patient verbalized understanding. Undiagnosed new problem with uncertain prognosis? @ -None Drug Therapy requiring intensive monitoring for toxicity (Heparin, Nitro, Insulin, Cardizem)? @ -None Were any procedures done? @ -None Diagnosis/symptom? @ -Contact dermatitis Acute, or Chronic, or Acute on Chronic? @ -Acute Uncomplicated (without systemic symptoms) or Complicated (systemic symptoms)? @ -Uncomplicated Side effects of treatment? @ -None Exacerbation, Progression, or Severe Exacerbation] @ -Not applicable Poses a threat to life or bodily function? @ -No Disposition Clinical Impression: Contact dermatitis Disposition: HOME SELF-CARE Instructions (If sedation given, give patient instructions): Urticaria (ED) Additional Instructions: Return to the emergency department with any new, worsening, or concerning symptoms. Continue to take Benadryl for the rash. You can apply the triamcinolone cream provided every 6 hours. You can also take [id number] famotidine 1-2 times daily. Follow up with your primary care provider in 1-2 days. Is patient prescribed a controlled substance at d/c from ED?: No Referrals: Est[facility] Esp[facility] [REFERRING] - 1-2 days Time of Disposition: 19:32
[2024-01-04] MEDS: TRIAMCINOLONE 0.1% CREAM 80 GM TUBE TOPICAL STA (18:44)
[2024-01-04 19:42] VITALS: BP 117/78; PULSE 91; RESP 18
== END 2024-01-04 19:42 | disposition home or self-care (01) ==
LOC: EC 17:33
DX: O99.712 Diseases of the skin and subcutaneous tissue complicating pregnancy, second trimester (principal); L25.9 Unspecified contact dermatitis, unspecified cause; Z88.8 Allergy status to other drugs, medicaments and biological substances; Z3A.22 22 weeks gestation of pregnancy
CPT/HCPCS: 99282

== ENCOUNTER 2024-04-12 13:58 | Outpatient (CLI) | payer OTHER ==
[2024-04-12 15:04] VITALS: BP 123/77; PULSE 103; RESP 16; TEMP 98
== END 2024-04-12 14:55 | disposition home or self-care (01) ==
LOC: FBPOP 13:58
PROVIDERS: ATTEND Obstetrics & Gynecology
DX: Z53.9 Procedure and treatment not carried out, unspecified reason (principal)
CPT/HCPCS: 59025; G0463; 99213

== ENCOUNTER 2024-04-30 01:04 | Inpatient (IN) | payer OTHER ==
[2024-04-30] MEDS ORDERED: CARBOPROST TROMETHAMINE 250 MCG/ML 1 ML AMP IM PRN (01:39)
[2024-04-30] MEDS ORDERED: miSOPROStoL 200 MCG TAB PO PRN (01:39)
[2024-04-30] MEDS ORDERED: TRANEXAMIC 1,000 MG/100ML-NACL 1,000 MG in EMPTY BAG 1 BAG IV PRN (01:39)
[2024-04-30] MEDS ORDERED: OXYTOCIN 10 UNIT/ML 1 ML VIAL IM PRN (01:39)
[2024-04-30] MEDS ORDERED: TERBUTALINE 1 MG/ML VIAL SQ PRN (01:39)
[2024-04-30] MEDS ORDERED: METHYLERGONOVINE 0.2 MG/ML 1 ML AMP IM PRN (01:39)
[2024-04-30] MEDS ORDERED: miSOPROStoL 200 MCG TAB RECTAL PRN (01:39)
[2024-04-30] MEDS: LACTATED RINGERS 1,000 ML IV SCH (02:00)
[2024-04-30 03:03] LABS: Basophils # (A) 0.1 k/uL (0-0.2); Basophils % (A) 1 %; Eosinophils # (A) 0.3 k/uL (0-0.7); Eosinophils % (A) 2 %; HCT 36.8 % (34.0-46.0); HGB 11.9 gm/dL (11.4-16.0); Lymphocytes # (A) 2.6 k/uL (1.0-4.8); Lymphocytes % (A) 24 %; MCH 27.8 pg (25.0-35.0); MCHC 32.4 g/dL (31.0-37.0); MCV 85.9 fL (80.0-100.0); Mean Platelet Volume 13.3; Monocytes # (A) 0.5 k/uL (0-1.0); Monocytes % (A) 5 %; Neutrophils # (A) 7.1 k/uL (1.3-7.7); Neutrophils % (A) 66 %; Platelet Count 167 k/uL (150-450); RBC 4.28 m/uL (3.80-5.40); RDW 13.8 % (11.5-15.5); WBC 10.7 k/uL (3.8-10.6)
[2024-04-30 03:12] LABS: Amorphous Sediment,Urine Rare /hpf; Appearance,Urine Cloudy (Clear); Bacteria,Urine Rare /hpf; Bilirubin,Urine Negative (Negative); Blood,Urine Negative (Negative); Color,Urine Colorless; Glucose,Urine (UA) Negative (Negative); Ketones,Urine Negative (Negative); Leukocyte Esterase,Urine Negative (Negative); Mucus,Urine Rare /hpf; Nitrite,Urine Negative (Negative); Protein,Urine Negative (Negative); RBC,Urine <1 /hpf (0-5); Specific Gravity,Urine 1.007 (1.001-1.035); Squamous Epithelial Cell,Urine 4 /hpf (0-4); Urobilinogen,Urine <2.0 mg/dL (<2.0); WBC,Urine <1 /hpf (0-5)
[2024-04-30 03:21] LABS: ALT 13 U/L (4-34); AST 16 U/L (14-36); African American GFR (CKD) >90 (>60 ml/min/1.73 sqM); Blood Urea Nitrogen 5 mg/dL (7-17); LDH 150 U/L (120-246); Non-African American GFR(CKD) >90 (>60 ml/min/1.73 sqM); Uric Acid 4.5 mg/dL (3.7-7.4)
[2024-04-30 03:22] LABS: Creatinine,Urine Random 55.1 mg/dL; Protein/Creatinine Ratio,Urine 0.381
[2024-04-30 03:48] LABS: Large Platelets Present
[2024-04-30] MEDS ORDERED: fentaNYL (PF) 50 MCG/ML 5 ML AMP ONE (05:42)
[2024-04-30] MEDS ORDERED: ROPIVACAINE 5 MG/ML 30 ML VIAL ONE (05:42)
[2024-04-30] MEDS ORDERED: SODIUM CHLORIDE 0.9% 250 ML BAG ONE (05:42)
[2024-04-30] MEDS: OXYTOCIN 30 UNITS/500 ML NS 30 UNIT in SALINE 1 500ML.BAG IV SCH (09:00)
[2024-04-30] MEDS: LIDOCAINE 0.5% (PF) 5 MG/ML (50 ML SDV) SQ PRN (11:24)
[2024-04-30 11:51] VITALS: RESP 18
[2024-04-30] MEDS ORDERED: ZOLPIDEM 5 MG TAB PO PRN (11:58)
[2024-04-30] MEDS ORDERED: diphenhydrAMINE 50 MG/ML 1 ML VIAL IVP PRN ×2 (11:58)
[2024-04-30] MEDS ORDERED: diphenhydrAMINE 50 MG CAP PO PRN (11:58)
[2024-04-30] MEDS ORDERED: diphenhydrAMINE 25 MG CAP PO PRN (11:58)
[2024-04-30] MEDS ORDERED: HYDROCORTISONE 2.5% RECTAL CREAM 30 GM TUBE RECTAL PRN (11:58)
[2024-04-30] MEDS ORDERED: LANOLIN CREAM 1 GM TUBE TOPICAL PRN (11:58)
[2024-04-30] MEDS ORDERED: SIMETHICONE 80 MG CHEWABLE PO PRN (11:58)
[2024-04-30] MEDS ORDERED: BENZOCAINE/MENTHOL SPRAY 1 GM/SPRAY AEROSOL TOPICAL PRN (11:58)
[2024-04-30] MEDS: IBUPROFEN 800 MG TAB PO SCH (12:15)
--- NOTE | 2024-04-30 12:22 | P.HPOB ---
History of Present Illness H&P Date: 04/30/24 Chief Complaint: IUP @ 38-3/7 weeks, active labor 38-year-old 10 para 7-1-1-8 at 38-4/7 weeks that presents to labor and delivery in active labor. EDC 05/10 based on LMP and c/w 12 week US. Patient was initially at 20 weeks FGR, normal anatomical survery. Interval growth was noted 6%->15->38%ile. Patient states contractions began through the night, questionable rupture of membranes as she did note quite a few "gushes"of clear fluid. Patient notes good movement denies vaginal bleeding. blood work this patient is a blood type of O pos, rubella status immune, HBSaG neg, HIV neg, RPR NR, GBS neg. Review of Systems Constitutional: Denies chills, Denies fatigue, Denies fever Ears, nose, mouth and throat: Denies headache Cardiovascular: Reports leg edema Respiratory: Denies dyspnea Gastrointestinal: Denies constipation, Denies diarrhea, Denies nausea, Denies vomiting Genitourinary: Reports Past Medical History Past Medical History: No Reported History History of Any Multi-Drug Resistant Organisms: None Reported Past Surgical History: Appendectomy Additional Past Surgical History / Comment(s): Lympoma removal. Past Anesthesia/Blood Transfusion Reactions: No Reported Reaction Past Psychological History: Depression Additional Psychological History / Comment(s): Hx Depression, resolved now. Smoking Status: Never smoker Past Alcohol Use History: None Reported Past Drug Use History: None Reported - Past Family History Mother Family Medical History: Cancer, Thyroid Disorder Additional Family Medical History / Comment(s): Breast cancer. Medications and Allergies Home Medications Medication Instructions Recorded Confirmed Type Aspirin 81 mg PO DAILY 04/12/24 04/30/24 History Vit No.179/Iron/Folic 1 each PO DAILY 04/12/24 04/30/24 History [ Tablet] Allergies Allergy/AdvReac Type Severity Reaction Status Date / Time memory foam Allergy Intermediate Rash/Hives Uncoded 04/30/24 01:11 Exam Osteopathic Statement: *. No significant issues noted on an osteopathic structural exam other than those noted in the History and Physical/Consult. Vital Signs Temp Pulse Resp BP 04/30/24 02:16 98.9 F 112 H 16 132/80 Intake and Output 04/29/24 04/30/24 04/30/24 22:59 06:59 14:59 Other: # Voids 3 Weight 87.09 kg Targeted physical exam is performed this date General Is well-nourished well- developed female in no acute distress, breathing is nonlabored, heart has a regular rhythm, abdomen is gravid, on cervical exam she is 6/70/-2 station amniotomy is performed and clear fluid is obtained. heart tones are noted to be category 1 and she is giovanni every 4 minutes Results Result Diagrams: 04/30/24 02:20 04/30/24 02:20 Abnormal Lab Results - Last 24 Hours (Table) 04/30/24 04/30/24 04/30/24 Range/Units 02:00 02:20 02:20 WBC 10.7 H (3.8-10.6) k/uL BUN 5 L (7-17) mg/dL Urine Appearance Cloudy H (Clear) Amorphous Sediment Rare H (None) /hpf Urine Bacteria Rare H (None) /hpf Urine Mucus Rare H (None) /hpf Assessment and Plan (1) AMA (advanced maternal age) multigravida 35+ Current Visit: Yes Status: Acute Code(s): O09.529 - SUPERVISION OF ELDERLY MULTIGRAVIDA, UNSPECIFIED TRIMESTER SNOMED Code(s): 754247756 (2) Active labor Current Visit: No Status: Acute Code(s): JUX3584 - SNOMED Code(s): 865150190 Plan: 38-year-old 10 para 7-1-1-8 at 38-3/7 weeks that presents to labor and delivery in active labor. Patient is admitted to labor and delivery amniotomy is performed. Epidural was placed through the night for analgesia. Anticipate normal spontaneous vaginal delivery later this morning.
--- NOTE | 2024-04-30 12:48 | P.PROBDLV ---
Vaginal Delivery Note - . Vaginal Delivery Note: Date of service 04/30/2024 Findings: viable female delivered at 11:00, weight of 7 pounds 1 ounces 38-year-old 10 para 7-1-1-8 presents to labor and delivery at 38-4/7 weeks with complaints of regular painful contractions. Patient was admitted through the night with complaints of spontaneous rupture of membranes and regular painful contractions. Patient was noted to be 6 cm. Patient did receive an epidural through the night for pain control. Patient was examined in the morning noted to be 6 to 7 cm with a bulging bag of water, amniotomy was performed and clear fluid was obtained. Patient made good progress toward complete dilation after Pitocin augmentation of labor. Patient began pushing and had a normal spontaneous vaginal delivery of a viable female loose nuchal cord was noted at delivery and reduced on the perineum. Spontaneous cry was noted at . Umbilical cord was doubly clamped and cut. Placenta was delivered spontaneously intact with a three-vessel cord being noted. Apgars of 9 and 9 at 1 and 5 minutes respectively. did become dusky between 6 to 7 minutes of life and was taken to special care nursery for further evaluation. Please see pediatric record for full details. On inspection the patient's vaginal vault a first-degree vaginal laceration was noted repaired in the usual fashion after instillation of lidocaine with 3-0 Rapide. Hemostasis was noted after repair. Estimated blood loss 100 cc Counts were noted be correct x 2 at the end of the delivery.
[2024-04-30 14:01] VITALS: BP 124/67; PULSE 90; TEMP 98.4
[2024-04-30] MEDS ORDERED: ACETAMINOPHEN TAB 500 MG TAB PO SCH (16:00)
[2024-04-30] MEDS ORDERED: SENNOSIDES-DOCUSATE SODIUM 1 EACH TAB PO SCH (20:00)
== END 2024-04-30 15:12 | disposition home or self-care (01) | DRG 560 ==
LOC: FBPOP 01:04 → 4FBP 01:25
PROVIDERS: ADMIT Obstetrics & Gynecology; ATTEND Obstetrics & Gynecology Obstetrics
PROC: 10E0XZZ Delivery of Products of Conception, External Approach (ICD-10-PCS; principal; 2024-04-30)
PROC: 0HQ9XZZ Repair Perineum Skin, External Approach (ICD-10-PCS; 2024-04-30)
PROC: 10907ZC Drainage of Amniotic Fluid, Therapeutic from Products of Conception, Via Natural or Artificial Opening (ICD-10-PCS; 2024-04-30)
DX: O69.81X0 Labor and delivery complicated by cord around neck, without compression, not applicable or unspecified (principal); O70.0 First degree perineal laceration during delivery; F32.A Depression, unspecified; O99.344 Other mental disorders complicating childbirth; Z37.0 Single live birth; Z3A.38 38 weeks gestation of pregnancy; Z79.82 Long term (current) use of aspirin
CPT/HCPCS: 59025; 81001; 82565; 82570; 83615; 84156; 84450; 84460; 84520; 84550; 85025; 86850; 86900; 86901; 99213